=== PATIENT | female | born 1995 | race Caucasian/White ===

== ENCOUNTER 2020-05-23 12:38 | Emergency (ER) | payer OTHER, MEDICAID, SELFPAY ==
[2020-05-23 13:08] VITALS: BP 132/88; PULSE 111; RESP 20; TEMP 36.4; O2SAT 95; BMI 37.0
--- NOTE | 2020-05-23 13:34 | ED.PSYCH ---
HPI - Psych General Chief Complaint: Psychiatric Symptoms Stated Complaint: Crisis Time Seen by Provider: 05/23/20 13:08 Source: patient Mode of arrival: ambulatory Limitations: no limitations History of Present Illness HPI Narrative: 24-year-old female here with a past medical history borderline personality disorder, self injury, depression with feeling depressed for the last few days. Feeling suicidal like she wants to overdose on her home medications. No HI, hallucinations. No substance use currently. No physical complaints. MD complaint: suicidal ideation and feels depressed Onset (ago): day(s) Duration: constant History of same: Yes Relieving factors: none Exacerbating factors: none Associated psychiatric symptoms: none Associated symptoms: denies other symptoms Treatments prior to arrival: none Related Data Home Medications Medication Instructions Recorded Confirmed clonidine HCl 0.2 mg PO BEDTIME 05/23/20 05/23/20 desogestrel-ethinyl estradiol tab 05/23/20 [Apri] duloxetine [Cymbalta] 20 mg PO BID 05/23/20 05/23/20 fluoxetine [Prozac] 40 mg PO DAILY 05/23/20 05/23/20 hydroxyzine HCl 25 mg PO QID 05/23/20 05/23/20 quetiapine [Seroquel] 25 mg PO TID 05/23/20 05/23/20 topiramate [Topamax] 100 mg PO BEDTIME 05/23/20 05/23/20 Allergies Allergy/AdvReac Type Severity Reaction Status Date / Time No Known Allergies Allergy Verified 05/23/20 13:16 Review of Systems Review of Systems: Yes all other systems are reviewed and are negative Constitutional: Constitutional: Reports no additional constitutional complaints, Denies body ache(s), Denies chills, Denies fever(s), Denies headache(s) and Denies weakness Eyes: Eyes: Reports no additional eye complaints and Denies change in vision ENT: Reports system reviewed and no additional complaints, except as documented, Denies dizziness, Denies headache(s), Denies nasal congestion, Denies nasal discharge and Denies neck pain Cardiovascular: Cardiovascular: Reports no additional cardiovascular complaints, Denies chest pain, Denies leg edema and Denies dyspnea Respiratory: Respiratory: Reports no additional respiratory complaints, Denies cough and Denies dyspnea Gastrointestinal: Gastrointestinal: Reports no additional gastrointestinal complaints, Denies abdominal pain, Denies diarrhea, Denies nausea and Denies vomiting Genitourinary: Genitourinary: Reports no additional female genitourinary complaints and Denies urinary incontinence Musculoskeletal: Musculoskeletal: Reports no additional musculoskeletal complaints, Denies back pain, Denies arthralgias, Denies joint swelling, Denies neck pain, Denies numbness and Denies tingling Integumentary/Breasts: Skin/Breast: Reports system reviewed and no additional complaints, except as docu and Denies rash Neurologic: Reports system reviewed and no additional complaints, except as documented, Denies Abnormal speech present, Denies dizziness, Denies headache(s), Denies numbness, Denies tingling and Denies weakness Psychiatric: Psychiatric: Denies anxiety, Reports depression, Reports hopelessness, Denies visual hallucinations, Denies hallucinations, Denies tactile hallucinations, Denies homicidal ideation and Reports suicidal ideation [facility] Past Medical History Attestation statement: The following information was validated with the patient. Source: obtained from family and nursing notes reviewed Social History Social History Smoking Status: Current every day smoker Use of substances other than those prescribed or required for medical reasons: Yes Substance Use Type: Crack/Cocaine Advance Directives: No Advance Directives Information Provided: Yes Physical Exam Vital Signs: Vital Signs: Vital Signs Temp Pulse Resp BP Pulse Ox 05/23/20 16:24 98.5 F 76 20 121/80 97 05/23/20 13:08 97.6 F 111 H 20 132/88 95 Body Mass Index 37.0 Const: General: cooperative, healthy appearing, comfortable and no acute distress Orientation/consciousness: patient oriented x3 Limitations: no limitations HENMT: Head: Yes normal to inspection Ears: hearing grossly normal bilaterally General nose exam: Normal external nose present Face and sinus: Yes normal facial exam Mouth: Normal oral and palatal mucosa present Throat: Yes posterior oropharynx normal Eyes: General: appearance normal, both eyes and all related structures Pupils: Equal, round and reactive pupils present Neck: Neck: Yes normal visual inspection Chest: Chest palpation & inspection: normal inspection of the chest Resp: Effort & Inspection: normal respiratory effort Auscultation: clear to auscultation bilaterally Cardio: Rate: regular rate Rhythm: regular rhythm Peripheral pulses: Peripheral pulses 2+ throughout GI: Inspection: Yes normal to inspection Palpation (GI): Soft to palpation and nontender Auscultation: normal bowel sounds Back/Spine/Pelvis: Thoracic/Lumbar Spine: thoracic and lumbar spine normal to inspection Skin: General skin exam: no rashes or lesions noted Neuro: General: patient oriented x3, no focal motor deficits and normal sensation to monofilament Cranial nerves: Yes Equal, round and reactive pupils present Cognition (Neuro): normal cognition Speech: No Abnormal speech present Gait exam (Neuro): Normal gait present Motor exam (neuro): 5/5 motor strength present throughout Extrem: General: Yes normal to inspection Course Course Course Narrative: 24-year-old female here with SI, plan to OD on home pills and depression. No physical complaints. No concern for acute ingestion or trauma. Will check labs, drug screen, N evaluation. 1430- Labs reviewed. Mildly elevated LFTs. No old labs to compare to. Patient tells me she normally goes to [facility]. Will obtain to get records to compare. Tylenol level 0. Denies alcohol use. Is concerned over recent unprotected sexual activity with a partner. Add on hepatitis panel. At this time patient is medically cleared to be seen by [facility]. 1545- I did get labs from 05/17/2020 which show AST of 42 and ALT of 56. Tylenol level than 0. I talked to the patient. She denies abdominal pain or vomiting. She denies IV drug use or history of hepatitis. Hepatitis panel pending. Denies alcohol use. Denies Tylenol use. May be secondary to underlying hepatitis. low concern for tylenol toxicity with negative levels. Low concern for obstructive pathology with negative total/indirect bili. Will continue with plan of care. 1700-Sign out to [place]mar COMPENSATION ADMINISTRATOR pending above. MDM - Psych Restraints Face to Face Assessment: Face to Face Assessment: Current Situation: After assessment of the patient, a review of the pertinent medical record and a discussion with nursing staff, I feel the patient requires a restrain intervention. Reaction To: [] Medical Condition: [] Behavioral State: [] Continued Need: [] Medical Records Attestation: I reviewed the patient's medical records. Lab Data Attestation: I reviewed the patient's lab results. Result diagrams: 05/23/20 13:25 05/23/20 13:25 Labs: Lab Results 05/23/20 05/23/2005/23/20 Range/Units 13:25 13:25 13:25 WBC 7.8 (4.8-10.8) X10*3/uL RBC 4.99 (4.20-5.50) X10*6/uL Hgb 14.3 (12.0-16.0) g/dl Hct 43.4 (37-47) % MCV 87.0 (80-98) fL MCH 28.7 (27.0-33.0) pg MCHC 32.9 (31.0-35.0) g/dl RDW 13.0 (11.0-16.0) % Plt Count 239 (160-400) X10*3/uL MPV 9.5 (9.4-12.3) fL Immature Gran % (Auto) Cancelled Neut % (Auto) Cancelled Lymph % (Auto) Cancelled [facility] % (Auto) Cancelled Eos % (Auto) Cancelled Baso % (Auto) Cancelled Lymph # (Auto) Cancelled [facility] # (Auto) Cancelled Eos # (Auto) Cancelled Baso # (Auto) Cancelled Abs Immat Gran (auto) Cancelled Absolute Neuts (auto) Cancelled Absolute Nucleated RBC 0.000 (0.0-0.012) X10*3/uL Nucleated RBC % (auto) 0.0 (0.0-0.2) /100WBC Neutrophils % (Manual) 29 L (45-73) % Band Neutrophils % 0 L (3-5) % Lymphocytes % (Manual) 51 H (20-40) % Atypical Lymphs % (Man) 5 (0-6) % Monocytes % (Manual) 9 (2-11) % Eosinophils % (Manual) 4 (0-4) % Basophils % (Manual) 2 H (0-1) % Abs Neuts (Manual) 2.3 (2.2-7.9) X10*3/uL Lymphocytes # (Manual) 4.0 (0.6-4.8) X10*3/uL Atyp Lymphs # (Manual) 0.4 x10*3/uL Monocytes # (Manual) 0.7 (0.0-1.2) X10*3/uL Eosinophils # (Manual) 0.3 (0.0-0.8) X10*3/UL Basophils # (Manual) 0.2 (0.0-0.3) X10*3/uL Platelet Estimate NORMAL (NORMAL) Plt Morphology Comment NORMAL RBC Morphology NOTED Acanthocytes (Spur) 1+ Smear Tech's Comments MANUAL DIFF Sodium 140 (135-145) mmol/L Potassium 3.7 (3.3-5.1) mmol/l Chloride 111 H (96-108) mmol/L Carbon Dioxide 20 L (22-29) mmol/L Anion Gap 13 (12-20) BUN 8 L (9-16) mg/dL Creatinine 0.71 (0.5-1.4) mg/dL Estim Creat Clear Calc 119.1 Estimated GFR > 60 Random Glucose 97 (60-115) mg/dL Calcium 8.1 L (8.4-10.2) mg/dL Total Bilirubin 0.4 (0.0-1.0) mg/dL AST 165 H (5-31) U/L ALT 157 H (0-31) U/L Alkaline Phosphatase 96 (39-117) U/L Total Protein 6.8 (6.5-8.0) g/dL Albumin 3.9 (3.5-5.0) g/dL Urine Test (NEGATIVE) Salicylates < 5.0 L (15-30) mg/dL Urine Opiates Screen Acetaminophen < 1 (<30) mcg/mL Ur Barbiturates Screen Ur Phencyclidine Scrn Ur Amphetamines Screen (Not Detect) U Benzodiazepines Scrn Urine Cocaine Screen (Not Detect) U Marijuana (THC) Screen Ethyl Alcohol < 10 mg/dL 05/23/20 05/23/20 Range/Units 13:57 13:57 WBC (4.8-10.8) X10*3/uL RBC (4.20-5.50) X10*6/uL Hgb (12.0-16.0) g/dl Hct (37-47) % MCV (80-98) fL MCH (27.0-33.0) pg MCHC (31.0-35.0) g/dl RDW (11.0-16.0) % Plt Count (160-400) X10*3/uL MPV (9.4-12.3) fL Immature Gran % (Auto) Neut % (Auto) Lymph % (Auto) [facility] % (Auto) Eos % (Auto) Baso % (Auto) Lymph # (Auto) [facility] # (Auto) Eos # (Auto) Baso # (Auto) Abs Immat Gran (auto) Absolute Neuts (auto) Absolute Nucleated RBC (0.0-0.012) X10*3/uL Nucleated RBC % (auto) (0.0-0.2) /100WBC Neutrophils % (Manual) (45-73) % Band Neutrophils % (3-5) % Lymphocytes % (Manual) (20-40) % Atypical Lymphs % (Man) (0-6) % Monocytes % (Manual) (2-11) % Eosinophils % (Manual) (0-4) % Basophils % (Manual) (0-1) % Abs Neuts (Manual) (2.2-7.9) X10*3/uL Lymphocytes # (Manual) (0.6-4.8) X10*3/uL Atyp Lymphs # (Manual) x10*3/uL Monocytes # (Manual) (0.0-1.2) X10*3/uL Eosinophils # (Manual) (0.0-0.8) X10*3/UL Basophils # (Manual) (0.0-0.3) X10*3/uL Platelet Estimate (NORMAL) Plt Morphology Comment RBC Morphology Acanthocytes (Spur) Smear Tech's Comments Sodium (135-145) mmol/L Potassium (3.3-5.1) mmol/l Chloride (96-108) mmol/L Carbon Dioxide (22-29) mmol/L Anion Gap (12-20) BUN (9-16) mg/dL Creatinine (0.5-1.4) mg/dL Estim Creat Clear Calc Estimated GFR Random Glucose (60-115) mg/dL Calcium (8.4-10.2) mg/dL Total Bilirubin (0.0-1.0) mg/dL AST (5-31) U/L ALT (0-31) U/L Alkaline Phosphatase (39-117) U/L Total Protein (6.5-8.0) g/dL Albumin (3.5-5.0) g/dL Urine Test NEGATIVE (NEGATIVE) Salicylates (15-30) mg/dL Urine Opiates Screen TNP Acetaminophen (<30) mcg/mL Ur Barbiturates Screen TNP Ur Phencyclidine Scrn TNP Ur Amphetamines Screen Not Detected (Not Detect) U Benzodiazepines Scrn TNP Urine Cocaine Screen Not Detected (Not Detect) U Marijuana (THC) Screen TNP Ethyl Alcohol mg/dL Discharge Plan Discharge Clinical Impression: Suicidal ideation, Depression, Elevated LFTs Prescriptions: No Action hydroxyzine HCl 25 mg PO QID RF: 0 quetiapine [Seroquel] 25 mg Tablet 25 mg PO TID RF: 0 fluoxetine [Prozac] 40 mg Capsule 40 mg PO DAILY RF: 0 desogestrel-ethinyl estradiol [Apri] 0.15-0.03 mg Tablet RF: 0 clonidine HCl 0.2 mg Tablet 0.2 mg PO BEDTIME RF: 0 topiramate [Topamax] 100 mg Tablet 100 mg PO BEDTIME RF: 0 duloxetine [Cymbalta] 20 mg Capsule,Delayed Release(Dr/Ec) 20 mg PO BID RF: 0 Sign Out Sign Out Data: Sign Out Comment: Pending [facility] Last updated by Ana Jacobs COMPENSATION ADMINISTRATOR at 05/23/20 17:02
[2020-05-23 13:42] LABS: Hematocrit 43.4 % (37-47); Hemoglobin 14.3 g/dl (12.0-16.0); Mean Corpuscular HGB Conc 32.9 g/dl (31.0-35.0); Mean Corpuscular Hemoglobin 28.7 pg (27.0-33.0); Mean Platelet Volume 9.5 fL (9.4-12.3); Platelet Count 239 X10*3/uL (160-400); Red Blood Count 4.99 X10*6/uL (4.20-5.50); White Blood Count 7.8 X10*3/uL (4.8-10.8)
[2020-05-23 14:12] LABS: Ethanol < 10 mg/dL
[2020-05-23 14:13] LABS: UPreg QC Valid YES; Urine Pregnancy NEGATIVE (NEGATIVE)
[2020-05-23 14:16] LABS: SLIDE REVIEW MANUAL DIFF
[2020-05-23 14:21] LABS: Atypical Lymph Absolute Manual 0.4 x10*3/uL; Atypical Lymphs Percent Manual 5 % (0-6); Basophils Abs Manual 0.2 X10*3/uL (0.0-0.3); Basophils Percent Manual 2 % (0-1); Eosinophils Absolute Manual 0.3 X10*3/UL (0.0-0.8); Eosinophils Percent Manual 4 % (0-4); Lymphocytes Percent Manual 51 % (20-40); Monocytes Absolute Manual 0.7 X10*3/uL (0.0-1.2); Monocytes Percent Manual 9 % (2-11); Neutrophils Percent Manual 29 % (45-73)
[2020-05-23 14:22] LABS: Acanthocytes 1+; Platelet Estimate NORMAL (NORMAL); Platelet Morphology Comment NORMAL; RBC Morphology NOTED
[2020-05-23 14:25] LABS: Acetaminophen LAB < 1 mcg/mL (<30); Alanine Aminotransferase 157 U/L (0-31); Albumin Level 3.9 g/dL (3.5-5.0); Alkaline Phosphatase 96 U/L (39-117); Aspartate Amino Transferase 165 U/L (5-31); Bilirubin Total 0.4 mg/dL (0.0-1.0); Blood Urea Nitrogen 8 mg/dL (9-16); Calcium 8.1 mg/dL (8.4-10.2); Creatinine Clr Calc Pharmacy 119.1; Estimated Glomerular Filt Rate > 60; Glucose Random 97 mg/dL (60-115); Potassium 3.7 mmol/l (3.3-5.1); Salicylate < 5.0 mg/dL (15-30); Sodium 140 mmol/L (135-145); Total Protein 6.8 g/dL (6.5-8.0)
[2020-05-23 14:30] LABS: Band Neutrophils Percent 0 % (3-5); Neutrophils Absolute Manual 2.3 X10*3/uL (2.2-7.9)
[2020-05-23] MEDS: LORazepam 1 MG TABLET PO (14:49)
[2020-05-23 14:55] LABS: Amphetamine Screen Urine Not Detected (Not Detect); Cocaine Screen Urine Not Detected (Not Detect)
--- NOTE | 2020-05-23 15:38 | PC.NURSE ---
Medical records received from [facility], reviewed w/ provider.
[2020-05-23 16:24] VITALS: BP 121/80; PULSE 76; RESP 20; TEMP 36.9; O2SAT 97
[2020-05-23 17:13] LABS: UPreg QC Valid YES; Urine Pregnancy NEGATIVE (NEGATIVE)
[2020-05-23 17:27] LABS: Amphetamine Screen Urine Not Detected (Not Detect); Barbiturates, Urine Not Detected (Not Detect); Benzodiazepines Screen Urine Not Detected (Not Detect); Cannabinoid Screen Urine POSITIVE (Not Detect); Cocaine Screen Urine Not Detected (Not Detect); Opiate Screen Urine Not Detected (Not Detect); Phencyclidine Screen Urine Not Detected (Not Detect)
[2020-05-23 20:20] LABS: Lipase 6 U/L (8-78)
[2020-05-23 20:26] LABS: Anion Gap 15 (12-20); Carbon Dioxide 19 mmol/L (22-29); Chloride 110 mmol/L (96-108)
[2020-05-23 20:47] VITALS: BP 123/79; PULSE 86
[2020-05-23] MEDS: QUEtiapine Fumarate 25 MG TABLET PO (20:47)
[2020-05-23] MEDS: cloNIDine HCL 0.2 MG TABLET PO (20:47)
[2020-05-23] MEDS: hydrOXYzine HCL 25 MG TABLET PO (20:47)
[2020-05-23] MEDS: Topiramate 100 MG TABLET PO (20:47)
[2020-05-23 20:51] VITALS: BP 123/79; PULSE 86; RESP 20; O2SAT 97
[2020-05-23] MEDS: DULoxetine HCl 20 MG CAPSULE.DR PO (21:20)
[2020-05-23] MEDS: metroNIDAZOLE 500 MG TABLET PO (22:36)
[2020-05-24 04:40] LABS: HBS Num1 0.55 mIU/mL (0-7.99); HBc Num1 0.13 S/CO (0.00-0.79); Hepatitis B Core Antibody Nonreactive (Nonreactive); ~HepC Num1 0.15 S/CO (0.00-0.79); ~Hepatitis B Surface Antibody NONREACTIVE (Nonreactive); ~Hepatitis C Antibody Nonreactive (Nonreactive)
[2020-05-24 04:44] LABS: HBsAGNum1 0.19 S/CO (0.00-0.99); Hepatitis B Surface Antigen Negative (Negative)
--- NOTE | 2020-05-24 07:09 | PC.NURSE ---
Report received from NONA Torres. Pt5 resting, resp unlabored.
[2020-05-24 08:41] VITALS: BP 117/72; PULSE 81; TEMP 36.3
[2020-05-24] MEDS: hydrOXYzine HCL 25 MG TABLET PO ×4 (09:09→20:03)
[2020-05-24] MEDS: FLUoxetine HCl 20 MG CAPSULE 40 MG PO (09:09)
[2020-05-24 09:43] LABS: Alanine Aminotransferase 139 U/L (0-31); Albumin Level 3.6 g/dL (3.5-5.0); Alkaline Phosphatase 87 U/L (39-117); Aspartate Amino Transferase 139 U/L (5-31); Bilirubin Direct 0.2 mg/dL (0.0-0.5); Bilirubin Total 0.6 mg/dL (0.0-1.0); Total Protein 6.3 g/dL (6.5-8.0)
[2020-05-24] MEDS: DULoxetine HCl 20 MG CAPSULE.DR PO ×2 (09:57→20:15)
[2020-05-24] MEDS: metroNIDAZOLE 500 MG TABLET PO ×2 (10:14→20:04)
[2020-05-24 16:25] VITALS: BP 115/72; PULSE 82; RESP 20; TEMP 36.9; O2SAT 97
[2020-05-24 16:56] LABS: SARS COV2 PCR INHOUSE NEGATIVE (Negative)
--- NOTE | 2020-05-24 17:30 | PC.NURSE ---
report given to pattie chaves at [facility].
[2020-05-24 20:04] VITALS: BP 115/71; PULSE 85
[2020-05-24] MEDS: cloNIDine HCL 0.2 MG TABLET PO (20:04)
[2020-05-24] MEDS: Topiramate 100 MG TABLET PO (20:15)
[2020-05-25 07:28] LABS: Hepatitis A Antibody IgM 0.24 Index (0-0.79); ~Hepatitis A Antibody IgM Nonreactive (Nonreactive)
== END 2020-05-24 21:13 ==
PROVIDERS: Nurse Practitioner Family; Nurse Practitioner Primary Care; Emergency Provider Emergency Medicine; PCP Family Medicine
DX: F33.1 Major depressive disorder, recurrent, moderate (principal); R45.851 Suicidal ideations; R79.89 Other specified abnormal findings of blood chemistry; Z79.899 Other long term (current) drug therapy; Z20.828 Contact with and (suspected) exposure to other viral communicable diseases
CPT/HCPCS: 36415; 80053; 80076; 80307; 80320; 81025; 83690; 85007; 85025; 85027; 86704; 86706; 86709; 86803; 87340; 99285; G0480; U0003

== ENCOUNTER 2021-12-06 15:53 | Inpatient (IN) | payer OTHER, SELFPAY ==
--- NOTE | 2021-12-06 | ECG_ITS ---
Test Reason : MED CLEARANCE Blood Pressure : / mmHG Vent. Rate : 081 BPM Atrial Rate : 081 BPM P-R Int : 132 ms QRS Dur : 076 ms QT Int : 408 ms P-R-T Axes : 042 068 042 degrees QTc Int : 473 ms Normal sinus rhythm Normal ECG No previous ECGs available Referred By: Jerod Little Electronically Signed By:KEITH EMERSON
--- NOTE | ~2021-12-06 | CT_ITS ---
EXAMINATION: CT FACIAL BONES WITHOUT CONTRAST CLINICAL INFORMATION: Facial trauma. Crepitus. COMPARISON: None TECHNIQUE: Axial images through the facial bones without contrast. Sagittal and coronal reconstructions on the technologist workstation were performed. This CT examination was performed using dose optimization techniques as appropriate, variously including the following: *Automated exposure control *Adjustment of mA and/or kV according to patient size (this includes techniques or standardized protocols for targeted exams where dose is matched to indication/reason for exam; i.e. extremities or head) *Use of iterative reconstruction technique DLP: 229 mGy-cm FINDINGS: No fracture is seen. The nasal septum is midline. The paranasal sinuses are clear. The temporomandibular joints are normal. The mastoid air cells and middle ears are clear. The orbits are normal. There is shotty cervical lymphadenopathy. No abnormal air collection is seen. CT/CT facial bones wo con IMPRESSION: No fracture seen.
[2021-12-06 15:56] VITALS: BP 125/85; PULSE 87; RESP 18; TEMP 36.7; O2SAT 100; BMI 54.6
--- NOTE | 2021-12-06 16:01 | PC.NURSE ---
Mom and patient able to contract for safety. pod staff made aware of access to lethal means being in vehicle on site.
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
[2021-12-06 17:21] LABS: Amphetamine Screen Urine Not Detected (Not Detect); Barbiturates, Urine Not Detected (Not Detect); Benzodiazepines Screen Urine Not Detected (Not Detect); Cannabinoid Screen Urine POSITIVE (Not Detect); Cocaine Screen Urine Not Detected (Not Detect); Fentanyl, urine Not Detected (Not Detect); Opiate Screen Urine Not Detected (Not Detect); Phencyclidine Screen Urine Not Detected (Not Detect)
[2021-12-06 17:26] LABS: COVID-19 Test Negative (Negative); IDNOW Serial# 16C4AD1C
[2021-12-06 17:26] LABS: Appearance Urine CLEAR; Color Urine YELLOW; Glucose Urine UA NEG (NEG); Leukocyte Esterase Urine NEG (NEG); Nitrite Urine NEG (NEG); PH 6.5 (5.0-8.0); Specific Gravity - Urine 1.015 (1.005-1.025); UACC Culture Trigger NO; Urine Blood TRACE (NEG); Urine Ketones 5 MG/DL (NEG); Urine Protein NEG (NEG-TRACE)
[2021-12-06 17:35] LABS: RBC Urine 0 /HPF (0); Squamous Epithelial Cell Urine 1+ /LPF; WBC Urine 0 /HPF (0-4)
--- NOTE | 2021-12-06 20:17 | PHA.MEDREC ---
Pharmacy Consult ? Medication Reconciliation Pharmacy has completed the medication reconciliation.
[2021-12-06 20:56] LABS: Basophils Percent Auto 0.3 % (0-2); Eosinophils Absolute Auto 0.1 X10*3/uL (0.0-0.4); Eosinophils Percent Auto 1.3 % (0-4); Hematocrit 38.5 % (37.0-47.0); Hemoglobin 12.4 g/dl (12.0-16.0); Imm Gran Abs Auto 0.03 X10*3/uL (0.00-0.03); Imm Gran Pct Auto 0.3 % (0.0-0.4); Lymphocytes Absolute Auto 3.5 X10*3/uL (1.2-4.9); Lymphocytes Percent Auto 40.1 % (20-40); MANUAL DIFF FLAG NO; Mean Corpuscular HGB Conc 32.2 g/dl (31.0-35.0); Mean Corpuscular Hemoglobin 26.2 pg (27.0-33.0); Mean Corpuscular Volume 81.4 fL (80.0-98.0); Mean Platelet Volume 9.3 fL (9.4-12.3); Monocytes Absolute Auto 0.7 X10*3/uL (0.1-1.2); Monocytes Percent Auto 8.3 % (2-11); Neutrophils Absolute Auto 4.4 x10*3/uL (2.0-8.3); Neutrophils Percent Auto 49.7 % (45-73); Platelet Count 362 X10*3/uL (160-400); Red Blood Count 4.73 X10*6/uL (4.20-5.50); Red Cell Distribution Width 13.7 % (11.0-16.0); White Blood Count 8.8 X10*3/uL (4.8-10.8)
[2021-12-06 21:14] LABS: Alanine Aminotransferase 29 U/L (0-31); Albumin Level 4.1 g/dL (3.5-5.0); Alkaline Phosphatase 105 U/L (39-117); Anion Gap 13 (12-20); Aspartate Amino Transferase 26 U/L (5-31); Bilirubin Total 0.4 mg/dL (0.0-1.0); Blood Urea Nitrogen 6 mg/dL (9-16); Calcium 9.3 mg/dL (8.4-10.2); Carbon Dioxide 23 mmol/L (22-29); Chloride 109 mmol/L (96-108); Estimated Glomerular Filt Rate > 60; Glucose Random 98 mg/dL (60-115); Magnesium 2.2 mg/dL (1.6-2.6); Potassium 4.4 mmol/L (3.3-5.1); Sodium 141 mmol/L (135-145); Total Protein 7.3 g/dL (6.5-8.0)
[2021-12-06 21:15] LABS: Ethanol < 10 mg/dL
--- NOTE | 2021-12-06 21:34 | MHC.CARE ---
Pt is a voluntary Inpatient bedsearch
[2021-12-06] MEDS: LORazepam 1 MG TABLET PO (22:18)
[2021-12-06 22:58] LABS: Acetaminophen LAB < 1 mcg/mL (<30); Salicylate < 5.0 mg/dL (15-30)
[2021-12-07 00:26] VITALS: BMI 49.1
[2021-12-07 00:27] VITALS: BP 116/60; PULSE 84; TEMP 36.8; O2SAT 94
[2021-12-07] MEDS: traZODone HCL 50 MG TABLET PO ×2 (01:07→21:09)
[2021-12-07] MEDS: Acetaminophen 325 MG TABLET 650 MG PO (01:07)
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
[2021-12-07 06:00] VITALS: BP 119/80; PULSE 86; RESP 18; TEMP 36.8; O2SAT 92
[2021-12-07 10:30] VITALS: BMI 49.2
[2021-12-07] MEDS: LORazepam 1 MG TABLET PO ×2 (11:46→20:43)
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
[2021-12-07 19:21] VITALS: BP 117/71; PULSE 92; O2SAT 94
[2021-12-07] MEDS: cloNIDine HCL 0.1 MG TABLET PO (19:22)
[2021-12-07 21:09] VITALS: BP 128/63; PULSE 86; RESP 16; TEMP 36.8; O2SAT 95
[2021-12-08 10:41] VITALS: BP 123/63; PULSE 84; RESP 20; TEMP 35.9; O2SAT 97
[2021-12-08] MEDS: cloNIDine HCL 0.1 MG TABLET 0.05 MG PO (10:48)
[2021-12-08] MEDS: Acetaminophen 325 MG TABLET 650 MG PO (13:48)
[2021-12-08] MEDS: DULoxetine HCl 30 MG CAPSULE.DR PO (13:48)
[2021-12-08 14:00] VITALS: BP 116/61; PULSE 83; RESP 20; O2SAT 98
[2021-12-08] MEDS: cloNIDine HCL 0.1 MG TABLET PO (15:19)
--- NOTE | 2021-12-08 15:36 | P.PNPSI_ITS ---
Subjective Subjective Date of Service: 12/08/21 Reason For Visit: SI Interim History: pt seen with NATE. calm and cooperative. reports anxiety no better with clonidine, agrees to increase dosing today. acknowledgement of her depression made today, anti-depressant Rx discussed. pt agrees to re-trial of cymbalta, her most recent medication trial, as she believes she did not have an adequate trial of it and she cannot recall the reason it was stopped, unlike other medications she has been on. also c/o yeast infection and asks for diflucan, which is granted. SW engages pt in some conversation about discharge planning. will likely F/U at [facility] in [place]. per staff, pleasant, moderate anx/dep. wishing she were , would hurt herself if she could, but not here. slept eves, med-compliant, appetite good. per collateral from mother, pt has been binging, paranoid, leaving multiple jobs (4 in the last month). Mental Status Exam Mental Status Exam Narrative: adequately dressed and groomed. cooperative. no PMA/PMR. speech nml in rate, amount, loudness, latency. flattened tone. thoughts linear and logical. affect constricted, normo-intense, non-labile. no SI/HI/AVH expressed. Diagnostics Vital Signs (24Hr): Vital Signs - 24 hr 12/07/21 19:21 12/07/21 21:09 12/08/21 10:41 Temperature 98.3 F 96.7 F L Pulse Rate 92 86 84 Respiratory Rate 16 20 Blood Pressure 117/71 128/63 123/63 Pulse Oximetry 94 95 97 BMI result Body Mass Index 49.2 Labs Results: 12/06/21 20:51 12/06/21 20:51 Labs: Laboratory Results - last 48 hr 12/06/21 12/06/21 12/06/21 16:55 16:55 16:56 WBC RBC Hgb Hct MCV MCH MCHC RDW Plt Count MPV Immature Gran % (Auto) Neut % (Auto) Lymph % (Auto) [place] % (Auto) Eos % (Auto) Baso % (Auto) Lymph # (Auto) [place] # (Auto) Eos # (Auto) Baso # (Auto) Abs Immat Gran (auto) Absolute Neuts (auto) Absolute Nucleated RBC Nucleated RBC % (auto) Sodium Potassium Chloride Carbon Dioxide Anion Gap BUN Creatinine Estim Creat Clear Calc Estimated GFR Random Glucose Calcium Magnesium Total Bilirubin AST ALT Alkaline Phosphatase Total Protein Albumin Urine Color YELLOW Urine Appearance CLEAR Urine pH 6.5 Ur Specific [place] 1.015 Urine Protein NEG Urine Glucose (UA) NEG Urine Ketones 5 Urine Blood TRACE Urine Nitrite NEG Ur Leukocyte Esterase NEG Urine RBC 0 Urine WBC 0 Ur Squamous Epith Cells 1+ Urine Bacteria NONE Salicylates Urine Opiates Screen Not Detected Urine Fentanyl Screen Not Detected Acetaminophen Ur Barbiturates Screen Not Detected Ur Phencyclidine Scrn Not Detected Ur Amphetamines Screen Not Detected U Benzodiazepines Scrn Not Detected Urine Cocaine Screen Not Detected U Marijuana (THC) Screen POSITIVE H Ethyl Alcohol COVID-19 ([facility]) Negative COVID-19 Clin Com See Note 12/06/21 12/06/21 12/06/21 20:51 20:51 20:51 WBC 8.8 RBC 4.73 Hgb 12.4 Hct 38.5 MCV 81.4 MCH 26.2 L MCHC 32.2 RDW 13.7 Plt Count 362 MPV 9.3 L Immature Gran % (Auto) 0.3 Neut % (Auto) 49.7 Lymph % (Auto) 40.1 H [place] % (Auto) 8.3 Eos % (Auto) 1.3 Baso % (Auto) 0.3 Lymph # (Auto) 3.5 [place] # (Auto) 0.7 Eos # (Auto) 0.1 Baso # (Auto) 0.0 Abs Immat Gran (auto) 0.03 Absolute Neuts (auto) 4.4 Absolute Nucleated RBC 0.000 Nucleated RBC % (auto) 0.0 Sodium 141 Potassium 4.4 Chloride 109 H Carbon Dioxide 23 Anion Gap 13 BUN 6 L Creatinine 0.73 Estim Creat Clear Calc 144.0 Estimated GFR > 60 Random Glucose 98 Calcium 9.3 D Magnesium 2.2 Total Bilirubin 0.4 AST 26 D ALT 29 Alkaline Phosphatase 105 D Total Protein 7.3 Albumin 4.1 Urine Color Urine Appearance Urine pH Ur Specific [place] Urine Protein Urine Glucose (UA) Urine Ketones Urine Blood Urine Nitrite Ur Leukocyte Esterase Urine RBC Urine WBC Ur Squamous Epith Cells Urine Bacteria Salicylates < 5.0 L Urine Opiates Screen Urine Fentanyl Screen Acetaminophen < 1 Ur Barbiturates Screen Ur Phencyclidine Scrn Ur Amphetamines Screen U Benzodiazepines Scrn Urine Cocaine Screen U Marijuana (THC) Screen Ethyl Alcohol < 10 COVID-19 ([facility]) COVID-19 Clin Com Medications Medications Current Medications Acetaminophen (Acetaminophen 325 Mg Tablet) 650 mg PO Q6H PRN PRN Reason: Headache/Pain Mild Scale (1-3) Last Admin: 12/08/21 13:48 Dose: 650 mg Documented by: Al Hydroxide/Mg Hydroxide (Magnesium Hydrox/Alum Hydrox 30 Ml Oral.Susp) 30 ml PO Q6H PRN PRN Reason: Heartburn/Nausea Clonidine HCl (Clonidine Hcl 0.1 Mg Tablet) 0.1 mg PO BID@0900,1500 [facility]; Protocol Last Admin: 12/08/21 15:19 Dose: 0.1 mg Documented by: Clonidine HCl (Clonidine Hcl 0.2 Mg Tablet) 0.2 mg PO BEDTIME [facility]; Protocol Duloxetine HCl (Duloxetine Hcl 30 Mg Capsule.Dr) 30 mg PO DAILY [facility] Last Admin: 12/08/21 13:48 Dose: 30 mg Documented by: Hydroxyzine HCl (Hydroxyzine Hcl 25 Mg Tablet) 25 mg PO BEDTIME PRN PRN Reason: Anxiety Magnesium Hydroxide (Milk Of Magnesia 30 Ml Oral.Susp) 30 ml PO DAILY PRN PRN Reason: Constipation Nicotine Polacrilex (Nicotine Polacrilex 2 Mg Gum) 2 mg BUCCAL Q2H PRN PRN Reason: Nicotine Cravings Trazodone HCl (Trazodone Hcl 50 Mg Tablet) 50 mg PO BEDTIME [facility] Last Admin: 12/07/21 21:09 Dose: 50 mg Documented by: Trazodone HCl (Trazodone Hcl 50 Mg Tablet) 50 mg PO BEDTIME PRN PRN Reason: Insomnia Allergies Allergies Allergy/AdvReac Type Severity Reaction Status Date / Time No Known Allergies Allergy Verified 05/23/20 13:16 Assessment & Plan Assessment & Plan (1) Chronic post-traumatic stress disorder (PTSD): Status: Acute Code(s): F43.12 - Post-traumatic stress disorder, chronic (2) Major depressive disorder, recurrent, moderate: Status: Acute Code(s): F33.1 - Major depressive disorder, recurrent, moderate (3) Suicidal ideation: Status: Acute Code(s): R45.851 - Suicidal ideations Plan started clonidine 0.05/0.05/0.1 as of 12/07 to address sympathetic hyperactivity Sx. dosing increased to 0.1/0.1/0.2 12/08 due to lack of effectiveness. titrate as indicated and tolerated. re-trial of cymbalta, started at 30 mg daily as of 12/08. c/o yeast infection, given empiric fluconazole 150 mg PO x 1 on 12/08. stabilize, refer for outpt F/U. I spent __35____ minutes with the patient and/or on the patient floor today, greater than?50% of which was spent counseling/coordinating care. Reason for contiued inpatient stay Substantial Risk for: harm to self, inability to function and rapid decompensation
[2021-12-08 16:26] VITALS: BP 116/61; PULSE 83; RESP 18; O2SAT 98
[2021-12-08] MEDS: Fluconazole 150 MG TABLET PO (17:45)
[2021-12-08 21:25] VITALS: BP 106/57; PULSE 65; RESP 18; TEMP 36.6; O2SAT 100
[2021-12-08] MEDS: cloNIDine HCL 0.2 MG TABLET PO (21:27)
[2021-12-08] MEDS: traZODone HCL 50 MG TABLET PO ×2 (21:27→21:30)
[2021-12-09 09:35] VITALS: BP 127/74; PULSE 76; RESP 20; TEMP 36.4; O2SAT 97
[2021-12-09] MEDS: cloNIDine HCL 0.1 MG TABLET PO ×2 (09:42→13:19)
[2021-12-09] MEDS: DULoxetine HCl 30 MG CAPSULE.DR PO (09:42)
--- NOTE | 2021-12-09 12:44 | HO.PSYCHPN ---
Subjective Subjective Date of Service: 12/09/21 Reason For Visit: SI Subjective Notes: Conditional Voluntary Interim History: Pt complains of depression and anxiety and feeling agitated. Reports no benefit from current clonidine and Vistaril dosing. Has been on higher doses in the past and also ativan that was helpful. Discussed increasing clonidine to 0.2mg am and afternoon and adjusting night time dose to 0.1mg and having 0.1mg prn once a day if needed. Sleep better with trazodone (required 100mg). Hopeless. No current SI. Medication Compliance: Yes Side effects from medications: No Attending Groups: Yes Review of Systems Acute medical concerns: No Review of Systems: nil of note. Noted diflucan started Review of Systems Review of Systems nil new. Started diflucan Mental Status Exam Mental Status Exam Narrative: adequately dressed and groomed.? cooperative.? no PMA/PMR.? speech nml in rate, amount, loudness, latency.? flattened tone.? thoughts linear and logical.? affect constricted, normo-intense, non-labile.? no SI/HI/AVH expressed. Insight and judgment fair Diagnostics Vital Signs (24Hr): Vital Signs - 24 hr 12/08/21 14:00 12/08/21 16:26 12/08/21 21:25 Temperature 97.9 F Pulse Rate 83 83 65 Respiratory Rate 20 18 18 Blood Pressure 116/61 116/61 106/57 L Pulse Oximetry 98 98 100 12/09/21 09:35 Temperature 97.6 F Pulse Rate 76 Respiratory Rate 20 Blood Pressure 127/74 Pulse Oximetry 97 BMI result Body Mass Index 49.2 Labs Results: 12/06/21 20:51 12/06/21 20:51 Medications Medications Current Medications Acetaminophen (Acetaminophen 325 Mg Tablet) 650 mg PO Q6H PRN PRN Reason: Headache/Pain Mild Scale (1-3) Last Admin: 12/08/21 13:48 Dose: 650 mg Documented by: Al Hydroxide/Mg Hydroxide (Magnesium Hydrox/Alum Hydrox 30 Ml Oral.Susp) 30 ml PO Q6H PRN PRN Reason: Heartburn/Nausea Clonidine HCl (Clonidine Hcl 0.2 Mg Tablet) 0.2 mg PO BID@0900,1500 [facility]; Protocol Clonidine HCl (Clonidine Hcl 0.1 Mg Tablet) 0.1 mg PO BEDTIME [facility]; Protocol Clonidine HCl (Clonidine Hcl 0.1 Mg Tablet) 0.1 mg PO DAILY PRN; Protocol PRN Reason: anxiety/insomnia not relieved by hydroxyzine Duloxetine HCl (Duloxetine Hcl 30 Mg Capsule.Dr) 30 mg PO DAILY [facility] Last Admin: 12/09/21 09:42 Dose: 30 mg Documented by: Hydroxyzine HCl (Hydroxyzine Hcl 50 Mg Tablet) 50 mg PO Q6H PRN PRN Reason: Anxiety or insomnia Magnesium Hydroxide (Milk Of Magnesia 30 Ml Oral.Susp) 30 ml PO DAILY PRN PRN Reason: Constipation Nicotine Polacrilex (Nicotine Polacrilex 2 Mg Gum) 2 mg BUCCAL Q2H PRN PRN Reason: Nicotine Cravings Trazodone HCl (Trazodone Hcl 50 Mg Tablet) 50 mg PO BEDTIME PRN PRN Reason: Insomnia Last Admin: 12/08/21 21:30 Dose: 50 mg Documented by: Trazodone HCl (Trazodone Hcl 100 Mg Tablet) 100 mg PO BEDTIME [facility] Allergies Allergies Allergy/AdvReac Type Severity Reaction Status Date / Time No Known Allergies Allergy Verified 05/23/20 13:16 Assessment & Plan Assessment & Plan (1) Chronic post-traumatic stress disorder (PTSD): Status: Acute Code(s): F43.12 - Post-traumatic stress disorder, chronic (2) Major depressive disorder, recurrent, moderate: Status: Acute Code(s): F33.1 - Major depressive disorder, recurrent, moderate (3) Suicidal ideation: Status: Acute Code(s): R45.851 - Suicidal ideations Plan started clonidine 0.05/0.05/0.1 as of 12/07 to address sympathetic hyperactivity Sx. dosing increased to 0.1/0.1/0.2 12/08 due to lack of effectiveness. titrate as indicated and tolerated. re-trial of cymbalta, started at 30 mg daily as of 12/08. c/o yeast infection, given empiric fluconazole 150 mg PO x 1 on 12/08. stabilize, refer for outpt F/U. 12/09: Discussed increasing clonidine to 0.2mg am and afternoon and adjusting night time dose to 0.1mg and having 0.1mg prn once a day if needed. Sleep better with trazodone (required 100mg)- will order same scheduled I spent minutes with the patient and/or on the patient floor today, greater than?50% of which was spent counseling/coordinating care. Patient educated on: medication risk/benefits Informed Consent: understands Reason for contiued inpatient stay Substantial Risk for: inability to function
[2021-12-09 13:17] VITALS: BP 117/71; PULSE 89; RESP 20; O2SAT 97
[2021-12-09] MEDS: hydrOXYzine HCL 50 MG TABLET PO (13:19)
[2021-12-09] MEDS: cloNIDine HCL 0.2 MG TABLET PO (15:07)
[2021-12-09 15:08] VITALS: BP 103/57; PULSE 66; RESP 18; O2SAT 97
--- NOTE | 2021-12-09 23:38 | PC.NURSE ---
Patient declined her HS medications. Patient stated that she did not need them tonight. Patient takes Trazodone and Clonidine at HS.
[2021-12-10] MEDS: cloNIDine HCL 0.2 MG TABLET PO (09:52)
[2021-12-10 10:00] VITALS: BP 84/60; PULSE 68
[2021-12-10] MEDS: DULoxetine HCl 30 MG CAPSULE.DR PO (10:04)
[2021-12-10 14:30] VITALS: BP 84/50; PULSE 68
--- NOTE | 2021-12-10 15:15 | HO.PSYCHPN ---
Subjective Subjective Date of Service: 12/10/21 Reason For Visit: SI Interim History: As per nursing declined night meds. Has been sleeping a lot during the daytime. With technical publications writer minimal interaction and reported no concern around medications. No evidence of SI, HI, psychosis. Medication Compliance: Intermittent Side effects from medications: No Attending Groups: No Review of Systems Acute medical concerns: No Review of Systems Review of Systems Nil acute Mental Status Exam Mental Status Exam Narrative: In bed. Minimal interaction. Ongoing depression and anxiety. affect flat. No evidence of SI HI or psychosis. Insight and judgment okay Diagnostics Vital Signs (24Hr): Vital Signs - 24 hr 12/10/21 10:00 12/10/21 14:30 Pulse Rate 68 68 Blood Pressure 84/60 L 84/50 L BMI result Body Mass Index 49.2 Labs Results: 12/06/21 20:51 12/06/21 20:51 Medications Medications Current Medications Acetaminophen (Acetaminophen 325 Mg Tablet) 650 mg PO Q6H PRN PRN Reason: Headache/Pain Mild Scale (1-3) Last Admin: 12/08/21 13:48 Dose: 650 mg Documented by: Al Hydroxide/Mg Hydroxide (Magnesium Hydrox/Alum Hydrox 30 Ml Oral.Susp) 30 ml PO Q6H PRN PRN Reason: Heartburn/Nausea Clonidine HCl (Clonidine Hcl 0.2 Mg Tablet) 0.2 mg PO BID@0900,1500 [facility]; Protocol Last Admin: 12/10/21 09:52 Dose: 0.2 mg Documented by: Clonidine HCl (Clonidine Hcl 0.1 Mg Tablet) 0.1 mg PO BEDTIME [facility]; Protocol Last Admin: 12/09/21 22:19 Dose: Not Given Documented by: Clonidine HCl (Clonidine Hcl 0.1 Mg Tablet) 0.1 mg PO DAILY PRN; Protocol PRN Reason: anxiety/insomnia not relieved by hydroxyzine Duloxetine HCl (Duloxetine Hcl 30 Mg Capsule.Dr) 30 mg PO DAILY [facility] Last Admin: 12/10/21 10:04 Dose: 30 mg Documented by: Hydroxyzine HCl (Hydroxyzine Hcl 50 Mg Tablet) 50 mg PO Q6H PRN PRN Reason: Anxiety or insomnia Last Admin: 12/09/21 13:19 Dose: 50 mg Documented by: Magnesium Hydroxide (Milk Of Magnesia 30 Ml Oral.Susp) 30 ml PO DAILY PRN PRN Reason: Constipation Nicotine Polacrilex (Nicotine Polacrilex 2 Mg Gum) 2 mg BUCCAL Q2H PRN PRN Reason: Nicotine Cravings Trazodone HCl (Trazodone Hcl 50 Mg Tablet) 50 mg PO BEDTIME PRN PRN Reason: Insomnia Last Admin: 12/08/21 21:30 Dose: 50 mg Documented by: Trazodone HCl (Trazodone Hcl 100 Mg Tablet) 100 mg PO BEDTIME [facility] Last Admin: 12/09/21 22:19 Dose: Not Given Documented by: Allergies Allergies Allergy/AdvReac Type Severity Reaction Status Date / Time No Known Allergies Allergy Verified 05/23/20 13:16 Assessment & Plan Assessment & Plan (1) Chronic post-traumatic stress disorder (PTSD): Status: Acute Code(s): F43.12 - Post-traumatic stress disorder, chronic (2) Major depressive disorder, recurrent, moderate: Status: Acute Code(s): F33.1 - Major depressive disorder, recurrent, moderate (3) Suicidal ideation: Status: Acute Code(s): R45.851 - Suicidal ideations Plan started clonidine 0.05/0.05/0.1 as of 12/07 to address sympathetic hyperactivity Sx. dosing increased to 0.1/0.1/0.2 12/08 due to lack of effectiveness. titrate as indicated and tolerated. re-trial of cymbalta, started at 30 mg daily as of 12/08. c/o yeast infection, given empiric fluconazole 150 mg PO x 1 on 12/08. stabilize, refer for outpt F/U. 12/09: Discussed increasing clonidine to 0.2mg am and afternoon and adjusting night time dose to 0.1mg and having 0.1mg prn once a day if needed. Sleep better with trazodone (required 100mg)- will order same scheduled I spent minutes with the patient and/or on the patient floor today, greater than?50% of which was spent counseling/coordinating care. Reason for contiued inpatient stay Substantial Risk for: inability to function
[2021-12-10 20:26] VITALS: BP 109/62; PULSE 86; RESP 18; TEMP 36.4; O2SAT 97
[2021-12-10] MEDS: traZODone HCL 100 MG TABLET PO (20:32)
[2021-12-10] MEDS: cloNIDine HCL 0.1 MG TABLET PO (20:32)
[2021-12-11] MEDS: DULoxetine HCl 30 MG CAPSULE.DR PO (09:11)
[2021-12-11] MEDS: cloNIDine HCL 0.2 MG TABLET PO (09:11)
[2021-12-11 09:12] VITALS: BP 144/65; PULSE 95; RESP 17; TEMP 36.4; O2SAT 97
--- NOTE | 2021-12-11 15:03 | P.PNPSI_ITS ---
Subjective Subjective Date of Service: 12/11/21 Reason For Visit: SI Interim History: pt calm and cooperative, found sleeping in bed late morning. would like to discharge soon. feels clonidine has not been particularly helpful, it just seems to be making her sleepy (she was placed on larger doses during the day and smaller dose at bedtime over the weekend). she agrees to return the dosing to larger dose at bedtime and smaller doses during the day as of today. denies SI/SIBI. no other complaints or requests. review that it may take some time before any gains from the [facility] are realized. per staff, isolative. refused clonidine at 1500 yesterday. guarded. keeping to self. anx/dep. showered. sleeping well. Mental Status Exam Mental Status Exam Narrative: adequately dressed and groomed. cooperative. no PMA/PMR. speech nml in rate, amount, loudness, latency. flattened tone. thoughts linear and logical. affect constricted, normo-intense, non-labile. denies SI/SIBI. no HI/AVH expressed. Diagnostics Vital Signs (24Hr): Vital Signs - 24 hr 12/10/21 20:26 12/11/21 09:12 Temperature 97.6 F 97.6 F Pulse Rate 86 95 Respiratory Rate 18 17 Blood Pressure 109/62 144/65 H Pulse Oximetry 97 97 BMI result Body Mass Index 49.2 Labs Results: 12/06/21 20:51 12/06/21 20:51 Medications Medications Current Medications Acetaminophen (Acetaminophen 325 Mg Tablet) 650 mg PO Q6H PRN PRN Reason: Headache/Pain Mild Scale (1-3) Last Admin: 12/08/21 13:48 Dose: 650 mg Documented by: Al Hydroxide/Mg Hydroxide (Magnesium Hydrox/Alum Hydrox 30 Ml Oral.Susp) 30 ml PO Q6H PRN PRN Reason: Heartburn/Nausea Clonidine HCl (Clonidine Hcl 0.1 Mg Tablet) 0.1 mg PO DAILY PRN; Protocol PRN Reason: anxiety/insomnia not relieved by hydroxyzine Clonidine HCl (Clonidine Hcl 0.1 Mg Tablet) 0.1 mg PO BID@0900,1500 GLORIA; Protocol Clonidine HCl (Clonidine Hcl 0.2 Mg Tablet) 0.2 mg PO BEDTIME GLORIA; Protocol Duloxetine HCl (Duloxetine Hcl 30 Mg Capsule.Dr) 30 mg PO DAILY GLORIA Last Admin: 12/11/21 09:11 Dose: 30 mg Documented by: Hydroxyzine HCl (Hydroxyzine Hcl 50 Mg Tablet) 50 mg PO Q6H PRN PRN Reason: Anxiety or insomnia Last Admin: 12/09/21 13:19 Dose: 50 mg Documented by: Magnesium Hydroxide (Milk Of Magnesia 30 Ml Oral.Susp) 30 ml PO DAILY PRN PRN Reason: Constipation Nicotine Polacrilex (Nicotine Polacrilex 2 Mg Gum) 2 mg BUCCAL Q2H PRN PRN Reason: Nicotine Cravings Trazodone HCl (Trazodone Hcl 50 Mg Tablet) 50 mg PO BEDTIME PRN PRN Reason: Insomnia Last Admin: 12/08/21 21:30 Dose: 50 mg Documented by: Trazodone HCl (Trazodone Hcl 100 Mg Tablet) 100 mg PO BEDTIME [facility] Last Admin: 12/10/21 20:32 Dose: 100 mg Documented by: Allergies Allergies Allergy/AdvReac Type Severity Reaction Status Date / Time No Known Allergies Allergy Verified 05/23/20 13:16 Assessment & Plan Assessment & Plan (1) Chronic post-traumatic stress disorder (PTSD): Status: Acute Code(s): F43.12 - Post-traumatic stress disorder, chronic (2) Major depressive disorder, recurrent, moderate: Status: Acute Code(s): F33.1 - Major depressive disorder, recurrent, moderate (3) Suicidal ideation: Status: Acute Code(s): R45.851 - Suicidal ideations Plan started clonidine 0.05/0.05/0.1 as of 12/07 to address sympathetic hyperactivity Sx. dosing increased to 0.1/0.1/0.2 12/08 due to lack of effectiveness. titrate as indicated and tolerated. re-trial of cymbalta, started at 30 mg daily as of 12/08. c/o yeast infection, given empiric fluconazole 150 mg PO x 1 on 12/08. stabilize, refer for outpt F/U. 12/09: Discussed increasing clonidine to 0.2mg am and afternoon and adjusting night time dose to 0.1mg and having 0.1mg prn once a day if needed. Sleep better with trazodone (required 100mg)- will order same scheduled. 12/11: return clonidine dosing to 0.1/0.1/0.2 due to daytime sedation. continue current regimen otherwise. discharge planning. I spent ___20___ minutes with the patient and/or on the patient floor today, greater than?50% of which was spent counseling/coordinating care. Reason for contiued inpatient stay Substantial Risk for: inability to function and rapid decompensation
[2021-12-11 20:58] VITALS: BP 99/52; PULSE 70; RESP 18; TEMP 36.6; O2SAT 95
[2021-12-11] MEDS: traZODone HCL 100 MG TABLET PO (21:05)
[2021-12-11] MEDS: hydrOXYzine HCL 50 MG TABLET PO (21:57)
[2021-12-11] MEDS: traZODone HCL 50 MG TABLET PO (21:57)
[2021-12-12 08:30] VITALS: BP 98/57; PULSE 71; RESP 18; TEMP 36.3; O2SAT 97
[2021-12-12] MEDS: DULoxetine HCl 30 MG CAPSULE.DR PO (08:59)
[2021-12-12] MEDS: cloNIDine HCL 0.1 MG TABLET PO ×3 (08:59→22:10)
--- NOTE | 2021-12-12 15:25 | PC.NURSE ---
Patient 3pm Clonidine held due to low blood pressure 106/48, HR 57. Dr. Thomas notified.
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
[2021-12-12 17:09] VITALS: BP 112/67; PULSE 73; RESP 20; O2SAT 97
[2021-12-12 18:00] VITALS: BP 108/64; PULSE 65; RESP 18; TEMP 26; O2SAT 100
[2021-12-12] MEDS: traZODone HCL 100 MG TABLET PO (22:10)
[2021-12-12] MEDS: Topiramate 25 MG TABLET PO (22:10)
[2021-12-13 06:00] VITALS: BP 92/62; PULSE 97; RESP 20; TEMP 36.4; O2SAT 97
[2021-12-13] MEDS: DULoxetine HCl 30 MG CAPSULE.DR PO (08:50)
[2021-12-13] MEDS: cloNIDine HCL 0.1 MG TABLET 0.05 MG PO (08:51)
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
== END 2021-12-13 12:59 | disposition home or self-care (01) | DRG 751 ==
LOC: HO.ED 21:35 → HO.PADLT16 23:42
PROVIDERS: Physician Assistant; Admitting Provider Psychiatry & Neurology Psychiatry; Emergency Provider Internal Medicine; PCP Family Medicine; Visit Provider Psychiatry & Neurology Psychiatry
DX: F33.1 Major depressive disorder, recurrent, moderate (principal); R45.851 Suicidal ideations; F43.12 Post-traumatic stress disorder, chronic; F17.210 Nicotine dependence, cigarettes, uncomplicated; Z20.822 Contact with and (suspected) exposure to COVID-19; Z71.6 Tobacco abuse counseling; Z79.899 Other long term (current) drug therapy
CPT/HCPCS: 70486; 80053; 80143; 80179; 80307; 81001; 82077; 83735; 85025; 87635; 93005; 99285

== ENCOUNTER 2022-07-19 12:45 | Inpatient (IN) | payer OTHER, SELFPAY ==
--- NOTE | 2022-07-19 | ECG_ITS ---
Test Reason : med clearance Blood Pressure : / mmHG Vent. Rate : 064 BPM Atrial Rate : 064 BPM P-R Int : 136 ms QRS Dur : 072 ms QT Int : 422 ms P-R-T Axes : 015 058 039 degrees QTc Int : 435 ms Normal sinus rhythm Normal ECG When compared with ECG of 06-DEC-2021 22:42, No significant change was found Referred By: Anitha Barry Electronically Signed By:ARNAUD BLACKMON MD
--- NOTE | ~2022-07-19 | CT_ITS ---
EXAMINATION: CT HEAD WITHOUT CONTRAST CLINICAL INFORMATION: SIBS head banging. COMPARISON: CT scan of the facial bones 12/12/2021. TECHNIQUE: Multidetector CT imaging of the head was obtained without the use of intravenous contrast. Coronal and sagittal reformatted images were generated at the technologist workstation. This CT examination was performed using dose optimization techniques as appropriate, variously including the following: *Automated exposure control *Adjustment of mA and/or kV according to patient size (this includes techniques or standardized protocols for targeted exams where dose is matched to indication/reason for exam; i.e. extremities or head) *Use of iterative reconstruction technique DLP: 648 mGy-cm. FINDINGS: There is no evidence of acute intracranial hemorrhage or territorial infarction. No abnormal mass-effect or midline shift is seen. Kim to white matter differentiation is well preserved. No extra-axial fluid collections are identified. The ventricles and sulci are normal in size. There is no abnormal attenuation within the brain parenchyma. There is soft tissue swelling with increased subcutaneous fat attenuation in the subcutaneous scalp in the midline above the orbit. There are no underlying osseous abnormalities. The mastoid air cells and visualized paranasal sinuses are well aerated.. CT/CT head/brain wo IV con IMPRESSION: 1. There are no acute bleeds or territorial infarcts. There are no acute osseous abnormalities. 2. There is soft tissue swelling in the scalp in the midline in the supraorbital region, consistent with a contusion. 3. No intracranial masses or collections are demonstrated.
[2022-07-19 12:48] VITALS: BP 136/87; PULSE 78; RESP 18; TEMP 36.4; O2SAT 100; BMI 52.3
--- NOTE | 2022-07-19 12:48 | ED_ITS ---
HPI - Psych General Chief Complaint: Psychiatric Symptoms <Ana Jacobs NP - Last Filed: 07/19/22 12:51> Stated Complaint: crisi <Ana Jacobs NP - Last Filed: 07/19/22 12:51> Time Seen by Provider: 07/19/22 13:21 <Ana Jacobs NP - Last Filed: 07/19/22 12:51> Source: patient <EDILSON James - Last Filed: 07/19/22 17:50> Mode of arrival: ambulatory <EDILSON James - Last Filed: 07/19/22 17:50> Limitations: no limitations <EDILSON James - Last Filed: 07/19/22 17:50> History of Present Illness HPI Narrative: Patient is a 26 year old assigned female at with a history of PTSD and MDD presenting to the emergency department today with suicidal ideation. Patient states that she has thoughts of hitting her head against the wall. Patient denies any dizziness, lightheadedness, abdominal pain, nausea, vomiting, fever, chills, blurry vision, double vision, loss of vision, chest pain, difficulty breathing, shortness of breath, back pain, night sweats, pain with urination, increased urinary frequency, increased urinary urgency, blood in her urine or stool, syncope or a near syncopal episode, recent trauma or falls, bowel incontinence, bladder incontinence, bowel retention, bladder retention, or any other complaints at this time. <EDILSON James - Last Filed: 07/19/22 17:50> MD complaint: suicidal ideation and feels depressed <EDILSON James - Last Filed: 07/19/22 17:50> Onset (ago): day(s) <EDILSON James - Last Filed: 07/19/22 17:50> Duration: constant <EDILSON James - Last Filed: 07/19/22 17:50> History of same: Yes <EDILSON James - Last Filed: 07/19/22 17:50> Relieving factors: none <EDILSON James Last Filed: 07/19/22 17:50> Exacerbating factors: none <EDILSON James - Last Filed: 07/19/22 17:50> Associated psychiatric symptoms: none <EDILSON James - Last Filed: 07/19/22 17:50> Associated symptoms: denies other symptoms <EDILSON James - Last Filed: 07/19/22 17:50> Treatments prior to arrival: none <EDILSON James - Last Filed: 07/19/22 17:50> If self harm: admits thoughts of self harm and has plan <EDILSON James - Last Filed: 07/19/22 17:50> Related Data Home Medications: Previous Rx's Medication Instructions Recorded clonidine HCl 0.1 mg tablet 0.05 mg PO BID@0900,1500 30 days 12/13/21 #15 tabs clonidine HCl 0.1 mg tablet 0.1 mg PO BEDTIME 30 days #30 tabs 12/13/21 duloxetine 30 mg capsule,delayed 30 mg PO DAILY 30 days #30 caps 12/13/21 release topiramate 25 mg tablet 25 mg PO BEDTIME 30 days #30 tabs 12/13/21 trazodone 100 mg tablet 100 mg PO BEDTIME 30 days #30 tabs 12/13/21 <Ana Jacobs NP - Last Filed: 07/19/22 12:51> Allergies/Adverse Reactions: Allergies Allergy/AdvReac Type Severity Reaction Status Date / Time No Known Allergies Allergy Verified 05/23/20 13:16 <Ana Jacobs NP - Last Filed: 07/19/22 12:51> Review of Systems Constitutional: Constitutional: Reports no additional constitutional complaints, Denies chills, Denies fever(s) and Denies night sweats <EDILSON James - Last Filed: 07/19/22 17:50> Eyes: Eyes: Reports no additional eye complaints, Denies blurry vision, Denies change in vision, Denies diplopia, Denies eye discharge, Denies loss of vision and Denies eye pain <EDILSON James - Last Filed: 07/19/22 17:50> ENT: Denies dizziness <EDILSON James Last Filed: 07/19/22 17:50> Cardiovascular: Cardiovascular: Reports no additional cardiovascular complaints, Denies chest pain, Denies lightheadedness, Denies Loss of Consciousness and Denies dyspnea <EDILSON James - Last Filed: 07/19/22 17:50> Respiratory: Respiratory: Reports no additional respiratory complaints and Denies dyspnea <EDILSON James - Last Filed: 07/19/22 17:50> Gastrointestinal: Gastrointestinal: Reports no additional gastrointestinal complaints, Denies abdominal pain, Denies melena, Denies hematochezia, Denies change in bowel habits and Denies change in stool character <EDILSON James - Last Filed: 07/19/22 17:50> Genitourinary: Genitourinary: Denies hematuria, Denies urinary frequency, Denies dysuria, Denies urinary incontinence, Denies urinary hesitancy and Denies urinary urgency <EDILSON James - Last Filed: 07/19/22 17:50> Musculoskeletal: Musculoskeletal: Reports no additional musculoskeletal complaints, Denies numbness and Denies tingling <EDILSON James - Last Filed: 07/19/22 17:50> Neurologic: Denies dizziness, Denies loss of vision, Denies numbness and Denies tingling <EDILSON James - Last Filed: 07/19/22 17:50> Psychiatric: Psychiatric: Reports no additional psychiatric complaints and Reports suicidal ideation <EDILSON James - Last Filed: 07/19/22 17:50> Endocrine: Endocrine: Reports no additional endocrine complaints <EDISLON James - Last Filed: 07/19/22 17:50> Hematologic/Lymphatic: Hematologic/Lymphatic: Reports no additional hematologic/lymphatic complaints <EDILSON James - Last Filed: 07/19/22 17:50> Allergic/Immunologic: Allergic/Immunologic: Reports no additional allergic/immunologic complaints <EDILSON James - Last Filed: 07/19/22 17:50> PMFSH Past Medical History Attestation statement: The following information was validated with the patient. <EDILSON James - Last Filed: 07/19/22 17:50> Source: old records reviewed and nursing notes reviewed <EDILSON James - Last Filed: 07/19/22 17:50> Social History Social History: Social History Household Members: None Housing: Apartment Do you presently have visiting nurse or other home services: No Alcohol intake: never Patient Tobacco Use Status: Current someday Tobacco user Tobacco use type: Cigarette Cigarette Packs Per Day: 0.2 Cigarettes Per Day: 4.0 Smoked in Last 30 Days: Yes e-Cigarette/Vaping Use: Never Used Second Hand Smoke Exposure: No Use of substances other than those prescribed or required for medical reasons: Yes Substance Use Type: Marijuana Advance Directives: No Advance Directives Information Provided: Yes Healthcare Proxy: No Guardian: No Patient : No service: No Sexual orientation: Don't Know <Ana Jacobs NP - Last Filed: 07/19/22 12:51> Physical Exam Vital Signs: Vital Signs: Last Vital Signs Temp 97.5 F 07/19/22 12:48 Pulse 78 07/19/22 12:48 Resp 18 07/19/22 12:48 BP 136/87 07/19/22 12:48 Pulse Ox 100 07/19/22 12:48 O2 Del Method 07/19/22 12:48 BMI result Body Mass Index 52.3 <Ana Jacobs NP - Last Filed: 07/19/22 12:51> Vital Signs: Last Vital Signs Temp 97.5 F 07/19/22 12:48 Pulse 78 07/19/22 12:48 Resp 18 07/19/22 12:48 BP 136/87 07/19/22 12:48 Pulse Ox 100 07/19/22 12:48 O2 Del Method 07/19/22 12:48 BMI result Body Mass Index 52.3 <EDILSON James - Last Filed: 07/19/22 17:50> Const: General: cooperative, no acute distress, alert and awake <EDILSON James - Last Filed: 07/19/22 17:50> Nutritional Appearance: well nourished <EDILSON James - Last Filed: 07/19/22 17:50> Orientation/consciousness: patient oriented x3 <EDILSON James - Last Filed: 07/19/22 17:50> Limitations: no limitations <EDILSON James - Last Filed: 07/19/22 17:50> HEENT: Head: Yes normal to inspection and Yes atraumatic <Sujatha Lopez [place] - Last Filed: 07/19/22 17:50> Ears: hearing grossly normal bilaterally and external ears normal <Sujatha Lopez VT - Last Filed: 07/19/22 17:50> General nose exam: Normal external nose present, no nasal discharge noted and no epistaxis <Sujatha Lopez [facility] Last Filed: 07/19/22 17:50> Face and sinus: Yes normal facial exam, No abrasion and No laceration <Sujatha Lopez VT - Last Filed: 07/19/22 17:50> Mouth: Normal oral and palatal mucosa present, no drooling and no muffled voice <Sujatha Lopez VT - Last Filed: 07/19/22 17:50> Eyes: General: appearance normal, both eyes and all related structures <Sujatha Lopez [facility] Last Filed: 07/19/22 17:50> Periorbital: periorbital findings normal <Sujatha Lopez VT - Last Filed: 07/19/22 17:50> Eyelids: Yes eyelids normal <Sujatha Lopez VT - Last Filed: 07/19/22 17:50> Conjunctivae: conjunctivae normal <Sujatha Lopez VT - Last Filed: 07/19/22 17:50> Pupils: Equal, round and reactive pupils present <Sujatha Lopez VT - Last Filed: 07/19/22 17:50> EOM: EOMs intact bilaterally <Sujatha Lopez [facility] Last Filed: 07/19/22 17:50> Neck: Neck: Yes normal visual inspection, Yes full ROM and Yes no lymphadenopathy <Sujatha Lopez [facility] Last Filed: 07/19/22 17:50> Chest: Chest palpation & inspection: normal inspection of the chest <Sujatha Hernandessid [facility] Last Filed: 07/19/22 17:50> Resp: Effort & Inspection: normal respiratory effort and able to speak in complete sentences <Sujatha Lopez [facility] Last Filed: 07/19/22 17:50> Auscultation: clear to auscultation bilaterally <Sujatha Hernandessid [facility] Last Filed: 07/19/22 17:50> Cardio: Rate: regular rate <Sujatha Lopez PA - Last Filed: 07/19/22 17:50> Rhythm: regular rhythm <Sujatha Lopez PA - Last Filed: 07/19/22 17:50> GI: Inspection: Yes normal to inspection <Sujatha Lopez PA - Last Filed: 07/19/22 17:50> Palpation (GI): Soft to palpation, not firm, nontender and no guarding <Sujatha Lopez PA - Last Filed: 07/19/22 17:50> Neuro: General: patient oriented x3 and moves all extremities <Sujatha Lopez PA - Last Filed: 07/19/22 17:50> Cranial nerves: Yes Equal, round and reactive pupils present <Sujatha Lopez PA - Last Filed: 07/19/22 17:50> Cognition (Neuro): normal cognition <Sujatha Lopez PA - Last Filed: 17:50> Motor exam (neuro): 5/5 motor strength present throughout <Sujatha Lopez PA - Last Filed: 07/19/22 17:50> Sensory Exam: Normal double simultaneous stimulation for sensation <Sujatha Lopez PA - Last Filed: 07/19/22 17:50> Coordination: [id number] test normal <Sujatha Lopez PA - Last Filed: 07/19/22 17:50> Extrem: General: Yes normal to inspection, Yes full ROM and Yes capillary refill normal <Sujatha Lopez PA - Last Filed: 07/19/22 17:50> Psych: Appearance: grossly normal <Sujatha Lopez PA - Last Filed: 07/19/22 17:50> Mental Status: mental status grossly normal <Sujatha Lopez PA - Last Filed: 07/19/22 17:50> Affect: Sad affect present <Sujatha Lopez PA - Last Filed: 07/19/22 17:50> Attitude: Guarded attititude/behavior present <Sujatha Lopez PA - Last Filed: 07/19/22 17:50> Thought process: Circumstantial thought process present <Sujatha Lopez PA - Last Filed: 07/19/22 17:50> Thought content: Suicidality present and Homicidality present <Sujatha Lopez PA - Last Filed: 07/19/22 17:50> Insight: Limited insight present (Psych) <EDILSON James - Last Filed: 07/19/22 17:50> Judgement: Limited judgement present (Psych) <EDILSON James - Last Filed: 07/19/22 17:50> Course Course Course Narrative: This is a rapid medical exam. Deferred additional HPI, ROS, PE to primary provider. 26 yo female with history of depression, PTSD here with thoughts of self harm x weeks. h/o self injury with laceration to right thigh done one week ago as self injury. Will need immediate bedding. Labs, LYON, covid screen ordered. VSS. <Ana Jacobs NP - Last Filed: 07/19/22 12:51> Medical Decision Making Medical Decision Making MDM Narrative: Patient is a 26 year old assigned female at with a history of PTSD and MDD presenting to the emergency department today with suicidal and homicidal ideation. Patient's physical exam was unremarkable. Patient's blood work was unremarkable. Patient's urine showed no acute process. Patient was evaluated by N who recommended admission. I explained my physical exam findings as well as all test results to the patient. I answered all questions asked by the patient. Patient verbalized agreement and understanding with this treatment plan and admission. <EDILSON James - Last Filed: 07/19/22 17:50> Differential Diagnosis Differential Diagnoses: The differential diagnosis associated with the presentation includes <EDILSON James - Last Filed: 07/19/22 17:50> SI/HI <EDILSON James - Last Filed: 07/19/22 17:50> Lab Data MDM Lab Attestation statement: I reviewed the patient's lab results. <EDILSON James - Last Filed: 07/19/22 17:50> Result Diagrams: : 07/19/22 13:54 07/19/22 13:54 <Ana Jacobs NP - Last Filed: 07/19/22 12:51> Labs: Lab Results 07/19/22 07/19/22 07/19/22 Range/Units 13:23 13:54 13:54 WBC 8.2 (4.8-10.8) X10*3/uL RBC 4.94 (4.20-5.50) X10*6/uL Hgb 13.0 (12.0-16.0) g/dl Hct 39.7 (37.0-47.0) % MCV 80.4 (80.0-98.0) fL MCH 26.3 L (27.0-33.0) pg MCHC 32.7 (31.0-35.0) g/dl RDW 13.4 (11.0-16.0) % Plt Count 384 (160-400) X10*3/uL MPV 9.6 (9.4-12.3) fL Immature Gran % (Auto) 0.2 (0.0-0.4) % Neut % (Auto) 57.8 (45-73) % Lymph % (Auto) 34.8 (20-40) % [place] % (Auto) 5.6 (2-11) % Eos % (Auto) 1.2 (0-4) % Baso % (Auto) 0.4 (0-2) % Lymph # (Auto) 2.8 (1.2-4.9) X10*3/uL [place] # (Auto) 0.5 (0.1-1.2) X10*3/uL Eos # (Auto) 0.1 (0.0-0.4) X10*3/uL Baso # (Auto) 0.0 (0.0-0.2) X10*3/uL Abs Immat Gran (auto) 0.02 (0.00-0.03) X10*3/uL Absolute Neuts (auto) 4.7 (2.0-8.3) x10*3/uL Absolute Nucleated RBC 0.000 (0.0-0.012) X10*3/uL Nucleated RBC % (auto) 0.0 (0.0-0.2) /100WBC Sodium 139 (135-145) mmol/L Potassium 4.1 (3.3-5.1) mmol/L Chloride 108 (96-108) mmol/L Carbon Dioxide 21 L (22-29) mmol/L Anion Gap 14 (12-20) BUN 8 L (9-16) mg/dL Creatinine 0.76 (0.5-1.4) mg/dL Estim Creat Clear Calc 134.4 Estimated GFR > 60 Random Glucose 106 (60-115) mg/dL Calcium 9.3 (8.4-10.2) mg/dL Total Bilirubin 0.3 (0.0-1.0) mg/dL Direct Bilirubin < 0.2 (0.0-0.5) mg/dL AST 22 (5-31) U/L ALT 28 (0-31) U/L Alkaline Phosphatase 87 (39-117) U/L Total Protein 7.3 (6.5-8.0) g/dL Albumin 4.2 (3.5-5.0) g/dL Urine Test (NEGATIVE) Salicylates < 5.0 L (15-30) mg/dL Urine Opiates Screen (Not Detect) Urine Fentanyl Screen (Not Detect) Acetaminophen < 1 (<30) mcg/mL Ur Barbiturates Screen (Not Detect) Ur Phencyclidine Scrn (Not Detect) Ur Amphetamines Screen (Not Detect) U Benzodiazepines Scrn (Not Detect) Urine Cocaine Screen (Not Detect) U Marijuana (THC) Screen (Not Detect) Ethyl Alcohol mg/dL COVID-19 (YARI) Negative (Negative) COVID-19 Clin Com See Note 07/19/22 07/19/22 07/19/22 Range/Units 13:54 14:00 14:01 WBC (4.8-10.8) X10*3/uL RBC (4.20-5.50) X10*6/uL Hgb (12.0-16.0) g/dl Hct (37.0-47.0) % MCV (80.0-98.0) fL MCH (27.0-33.0) pg MCHC (31.0-35.0) g/dl RDW (11.0-16.0) % Plt Count (160-400) X10*3/uL MPV (9.4-12.3) fL Immature Gran % (Auto) (0.0-0.4) % Neut % (Auto) (45-73) % Lymph % (Auto) (20-40) % [place] % (Auto) (2-11) % Eos % (Auto) (0-4) % Baso % (Auto) (0-2) % Lymph # (Auto) (1.2-4.9) X10*3/uL [place] # (Auto) (0.1-1.2) X10*3/uL Eos # (Auto) (0.0-0.4) X10*3/uL Baso # (Auto) (0.0-0.2) X10*3/uL Abs Immat Gran (auto) (0.00-0.03) X10*3/uL Absolute Neuts (auto) (2.0-8.3) x10*3/uL Absolute Nucleated RBC (0.0-0.012) X10*3/uL Nucleated RBC % (auto) (0.0-0.2) /100WBC Sodium (135-145) mmol/L Potassium (3.3-5.1) mmol/L Chloride (96-108) mmol/L Carbon Dioxide (22-29) mmol/L Anion Gap (12-20) BUN (9-16) mg/dL Creatinine (0.5-1.4) mg/dL Estim Creat Clear Calc Estimated GFR Random Glucose (60-115) mg/dL Calcium (8.4-10.2) mg/dL Total Bilirubin (0.0-1.0) mg/dL Direct Bilirubin (0.0-0.5) mg/dL AST (5-31) U/L ALT (0-31) U/L Alkaline Phosphatase (39-117) U/L Total Protein (6.5-8.0) g/dL Albumin (3.5-5.0) g/dL Urine Test NEGATIVE (NEGATIVE) Salicylates (15-30) mg/dL Urine Opiates Screen Not Detected (Not Detect) Urine Fentanyl Screen Not Detected (Not Detect) Acetaminophen (<30) mcg/mL Ur Barbiturates Screen Not Detected (Not Detect) Ur Phencyclidine Scrn Not Detected (Not Detect) Ur Amphetamines Screen Not Detected (Not Detect) U Benzodiazepines Scrn Not Detected (Not Detect) Urine Cocaine Screen Not Detected (Not Detect) U Marijuana (THC) Screen POSITIVE H (Not Detect) Ethyl Alcohol < 10 mg/dL COVID-19 (YARI) (Negative) COVID-19 Clin Com <Ana Jacobs NP - Last Filed: 07/19/22 12:51> Lab Results 12/29/22 12/29/22 12/29/22 Range/Units 13:23 13:54 13:54 WBC 8.2 (4.8-10.8) X10*3/uL RBC 4.94 (4.20-5.50) X10*6/uL Hgb 13.0 (12.0-16.0) g/dl Hct 39.7 (37.0-47.0) % MCV 80.4 (80.0-98.0) fL MCH 26.3 L (27.0-33.0) pg MCHC 32.7 (31.0-35.0) g/dl RDW 13.4 (11.0-16.0) % Plt Count 384 (160-400) X10*3/uL MPV 9.6 (9.4-12.3) fL Immature Gran % (Auto) 0.2 (0.0-0.4) % Neut % (Auto) 57.8 (45-73) % Lymph % (Auto) 34.8 (20-40) % [place] % (Auto) 5.6 (2-11) % Eos % (Auto) 1.2 (0-4) % Baso % (Auto) 0.4 (0-2) % Lymph # (Auto) 2.8 (1.2-4.9) X10*3/uL [place] # (Auto) 0.5 (0.1-1.2) X10*3/uL Eos # (Auto) 0.1 (0.0-0.4) X10*3/uL Baso # (Auto) 0.0 (0.0-0.2) X10*3/uL Abs Immat Gran (auto) 0.02 (0.00-0.03) X10*3/uL Absolute Neuts (auto) 4.7 (2.0-8.3) x10*3/uL Absolute Nucleated RBC 0.000 (0.0-0.012) X10*3/uL Nucleated RBC % (auto) 0.0 (0.0-0.2) /100WBC Sodium 139 (135-145) mmol/L Potassium 4.1 (3.3-5.1) mmol/L Chloride 108 (96-108) mmol/L Carbon Dioxide 21 L (22-29) mmol/L Anion Gap 14 (12-20) BUN 8 L (9-16) mg/dL Creatinine 0.76 (0.5-1.4) mg/dL Estim Creat Clear Calc 134.4 Estimated GFR > 60 Random Glucose 106 (60-115) mg/dL Calcium 9.3 (8.4-10.2) mg/dL Total Bilirubin 0.3 (0.0-1.0) mg/dL Direct Bilirubin < 0.2 (0.0-0.5) mg/dL AST 22 (5-31) U/L ALT 28 (0-31) U/L Alkaline Phosphatase 87 (39-117) U/L Total Protein 7.3 (6.5-8.0) g/dL Albumin 4.2 (3.5-5.0) g/dL Urine Test (NEGATIVE) Salicylates < 5.0 L (15-30) mg/dL Urine Opiates Screen (Not Detect) Urine Fentanyl Screen (Not Detect) Acetaminophen < 1 (<30) mcg/mL Ur Barbiturates Screen (Not Detect) Ur Phencyclidine Scrn (Not Detect) Ur Amphetamines Screen (Not Detect) U Benzodiazepines Scrn (Not Detect) Urine Cocaine Screen (Not Detect) U Marijuana (THC) Screen (Not Detect) Ethyl Alcohol mg/dL COVID-19 (YARI) Negative (Negative) COVID-19 Clin Com See Note 07/19/22 07/19/22 07/19/22 Range/Units 13:54 14:00 14:01 WBC (4.8-10.8) X10*3/uL RBC (4.20-5.50) X10*6/uL Hgb (12.0-16.0) g/dl Hct (37.0-47.0) % MCV (80.0-98.0) fL MCH (27.0-33.0) pg MCHC (31.0-35.0) g/dl RDW (11.0-16.0) % Plt Count (160-400) X10*3/uL MPV (9.4-12.3) fL Immature Gran % (Auto) (0.0-0.4) % Neut % (Auto) (45-73) % Lymph % (Auto) (20-40) % [place] % (Auto) (2-11) % Eos % (Auto) (0-4) % Baso % (Auto) (0-2) % Lymph # (Auto) (1.2-4.9) X10*3/uL [place] # (Auto) (0.1-1.2) X10*3/uL Eos # (Auto) (0.0-0.4) X10*3/uL Baso # (Auto) (0.0-0.2) X10*3/uL Abs Immat Gran (auto) (0.00-0.03) X10*3/uL Absolute Neuts (auto) (2.0-8.3) x10*3/uL Absolute Nucleated RBC (0.0-0.012) X10*3/uL Nucleated RBC % (auto) (0.0-0.2) /100WBC Sodium (135-145) mmol/L Potassium (3.3-5.1) mmol/L Chloride (96-108) mmol/L Carbon Dioxide (22-29) mmol/L Anion Gap (12-20) BUN (9-16) mg/dL Creatinine (0.5-1.4) mg/dL Estim Creat Clear Calc Estimated GFR Random Glucose (60-115) mg/dL Calcium (8.4-10.2) mg/dL Total Bilirubin (0.0-1.0) mg/dL Direct Bilirubin (0.0-0.5) mg/dL AST (5-31) U/L ALT (0-31) U/L Alkaline Phosphatase (39-117) U/L Total Protein (6.5-8.0) g/dL Albumin (3.5-5.0) g/dL Urine Test NEGATIVE (NEGATIVE) Salicylates (15-30) mg/dL Urine Opiates Screen Not Detected (Not Detect) Urine Fentanyl Screen Not Detected (Not Detect) Acetaminophen (<30) mcg/mL Ur Barbiturates Screen Not Detected (Not Detect) Ur Phencyclidine Scrn Not Detected (Not Detect) Ur Amphetamines Screen Not Detected (Not Detect) U Benzodiazepines Scrn Not Detected (Not Detect) Urine Cocaine Screen Not Detected (Not Detect) U Marijuana (THC) Screen POSITIVE H (Not Detect) Ethyl Alcohol < 10 mg/dL COVID-19 ([facility]ARI) (Negative) COVID-19 Clin Com <EDILSON James - Last Filed: 07/19/22 17:50> Discharge Plan Discharge Clinical Impression: Major depressive disorder, recurrent, moderate, Suicidal ideation <Ana Jacobs NP - Last Filed: 07/19/22 12:51> Patient Disposition: Admitted As Inpatient <Ana Jacobs NP - Last Filed: 07/19/22 12:51> Prescriptions: No Action clonidine HCl 0.1 mg Tablet 0.05 mg PO BID@0900,1500 30 Days Qty: 15 0RF Protocol: Hold for SBP< HOLD for SBP < : 90 clonidine HCl 0.1 mg Tablet 0.1 mg PO BEDTIME 30 Days Qty: 30 0RF Protocol: Hold for SBP< HOLD for SBP < : 90 topiramate 25 mg Tablet 25 mg PO BEDTIME 30 Days Qty: 30 0RF trazodone 100 mg Tablet 100 mg PO BEDTIME 30 Days Qty: 30 0RF duloxetine 30 mg Capsule,Delayed Release(Dr/Ec) 30 mg PO DAILY 30 Days Qty: 30 0RF <Ana Jacobs NP - Last Filed: 07/19/22 12:51>
--- NOTE | 2022-07-19 13:34 | PC.NURSE ---
pt is a/o x 4 no sob/jennifer noted skin pink warm dry speaks in full sentences. pt states si and hi towards her ex-boyfriend. pt seen by mlp (kelly). lunch at bedside. pt swabbed for covid. pt aware of plan of care for lab work.
[2022-07-19 13:45] LABS: COVID-19 Test Negative (Negative); IDNOW Serial# BCCEAD1C
--- NOTE | 2022-07-19 13:48 | PC.NURSE ---
pt states si with plan to take gabapentin at home. mlp aware.
--- NOTE | 2022-07-19 14:00 | PC.NURSE ---
smart sheet done by this rn.
[2022-07-19 14:10] LABS: MANUAL DIFF FLAG NO
[2022-07-19 14:11] LABS: Basophils Percent Auto 0.4 % (0-2); Eosinophils Absolute Auto 0.1 X10*3/uL (0.0-0.4); Eosinophils Percent Auto 1.2 % (0-4); Hematocrit 39.7 % (37.0-47.0); Imm Gran Abs Auto 0.02 X10*3/uL (0.00-0.03); Imm Gran Pct Auto 0.2 % (0.0-0.4); Lymphocytes Absolute Auto 2.8 X10*3/uL (1.2-4.9); Lymphocytes Percent Auto 34.8 % (20-40); Mean Corpuscular HGB Conc 32.7 g/dl (31.0-35.0); Mean Corpuscular Hemoglobin 26.3 pg (27.0-33.0); Mean Corpuscular Volume 80.4 fL (80.0-98.0); Mean Platelet Volume 9.6 fL (9.4-12.3); Monocytes Absolute Auto 0.5 X10*3/uL (0.1-1.2); Monocytes Percent Auto 5.6 % (2-11); Neutrophils Absolute Auto 4.7 x10*3/uL (2.0-8.3); Neutrophils Percent Auto 57.8 % (45-73); Platelet Count 384 X10*3/uL (160-400); Red Blood Count 4.94 X10*6/uL (4.20-5.50); Red Cell Distribution Width 13.4 % (11.0-16.0); White Blood Count 8.2 X10*3/uL (4.8-10.8)
[2022-07-19 14:12] LABS: UPreg QC Valid YES; Urine Pregnancy NEGATIVE (NEGATIVE)
[2022-07-19 14:20] LABS: Amphetamine Screen Urine Not Detected (Not Detect); Barbiturates, Urine Not Detected (Not Detect); Benzodiazepines Screen Urine Not Detected (Not Detect); Cannabinoid Screen Urine POSITIVE (Not Detect); Cocaine Screen Urine Not Detected (Not Detect); Fentanyl, urine Not Detected (Not Detect); Opiate Screen Urine Not Detected (Not Detect); Phencyclidine Screen Urine Not Detected (Not Detect)
[2022-07-19 14:37] LABS: Acetaminophen LAB < 1 mcg/mL (<30); Alanine Aminotransferase 28 U/L (0-31); Albumin Level 4.2 g/dL (3.5-5.0); Alkaline Phosphatase 87 U/L (39-117); Anion Gap 14 (12-20); Aspartate Amino Transferase 22 U/L (5-31); Bilirubin Direct < 0.2 mg/dL (0.0-0.5); Bilirubin Total 0.3 mg/dL (0.0-1.0); Blood Urea Nitrogen 8 mg/dL (9-16); Calcium 9.3 mg/dL (8.4-10.2); Carbon Dioxide 21 mmol/L (22-29); Chloride 108 mmol/L (96-108); Creatinine Clr Calc Pharmacy 134.4; Estimated Glomerular Filt Rate > 60; Ethanol < 10 mg/dL; Glucose Random 106 mg/dL (60-115); Potassium 4.1 mmol/L (3.3-5.1); Salicylate < 5.0 mg/dL (15-30); Sodium 139 mmol/L (135-145); Total Protein 7.3 g/dL (6.5-8.0)
--- NOTE | 2022-07-19 14:46 | PC.NURSE ---
smart sheet faxed again to [facility].
[2022-07-19 19:32] VITALS: BP 119/55; PULSE 63; RESP 17; TEMP 36.8; O2SAT 99
--- NOTE | 2022-07-19 19:42 | PHA.MEDREC ---
Pharmacy Consult ? Medication Reconciliation Pharmacy has completed the medication reconciliation. Checked med rec done by nursing
[2022-07-19 23:02] VITALS: BP 147/65; PULSE 60; RESP 16; TEMP 36.2; O2SAT 97
[2022-07-19] MEDS: traZODone HCL 50 MG TABLET PO ×2 (23:09→23:10)
--- NOTE | 2022-07-20 01:33 | PC.ADMIT ---
Pt is a 26 y/o female who presented to from ED at 2200 on 07/19/22 with increased SI with self-injurious behavior. Pt was referred to be assessed by her PCP. and increased depression and anxiety as well as self harming behaviors via cutting. She reports self harm by cutting a week ago and has a healing wound above her right knee. She reports she recently moved into her mothers home after being evicted from her apartment a few days ago due to not paying her rent. She reports she has been really depressed , sleeping all the time for the past 2 weeks, not working and has no financial resources currently. Margarita reports she has not taken her medications in months , she reports her psychiatrist 1 month ago added Latuda to her medication regimen. She reports she has not been taking the Latuda and missed her last appointment 2 weeks ago. Tox screen was positive for THC and small amount of alcohol
[2022-07-20 08:41] VITALS: BP 131/69; PULSE 67; RESP 16; TEMP 36.6; O2SAT 98
[2022-07-20 08:41] LABS: Cholesterol 222 mg/dL; Estimated Average Glucose 105 mg/dL; HDL Cholesterol 38 mg/dL; Hemoglobin A1c % 5.3 %; LDL Cholesterol Calculated 162 mg/dl; Triglycerides 110 mg/dL
[2022-07-20 09:22] LABS: Thyroid Stimulating Hormone 3.64 uIU/mL (0.32-4.0)
[2022-07-20 13:55] LABS: COVID-19 Test Negative (Negative); IDNOW Serial# BCCEAD1C
[2022-07-20 15:03] LABS: Vitamin B12 341 pg/mL (200-900)
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
[2022-07-20 18:00] VITALS: BP 123/83; PULSE 66; RESP 18; TEMP 36.3
[2022-07-20] MEDS: cloNIDine HCL 0.1 MG TABLET PO (18:45)
[2022-07-20] MEDS: Lurasidone HCl 20 MG TABLET PO (21:33)
[2022-07-20] MEDS: Topiramate 25 MG TABLET PO (21:33)
[2022-07-20] MEDS: Gabapentin 100 MG CAPSULE 200 MG PO (21:37)
[2022-07-20] MEDS: traZODone HCL 100 MG TABLET PO (21:37)
[2022-07-21 08:30] VITALS: BP 138/83; PULSE 59; TEMP 36.3
[2022-07-21] MEDS: buPROPion HCl XL 300 MG TAB.ER.24H PO (08:58)
[2022-07-21] MEDS: Omeprazole 20 MG CAPSULE.DR PO (08:59)
[2022-07-21] MEDS: Ibuprofen 800 MG TABLET PO (11:10)
[2022-07-21 18:00] VITALS: BP 131/7; PULSE 96; RESP 18; TEMP 36.2; O2SAT 98
--- NOTE | 2022-07-21 18:01 | P.PNPSI_ITS ---
Subjective Subjective Date of Service: 07/21/22 Reason For Visit: SI, depression Interim History: Margarita is visable in milieu, participating, and is connecting with peers and team. Reports poor sleep-will increase Trazodone ty 50 mg to assist with sx. Working on art project, coping skills. She tells team she received a difficult phone call last evening-she did not elaborate on this in our meeting today. Medication Compliance: Yes Side effects from medications: No Attending Groups: Yes Review of Systems Acute medical concerns: No Medical Review of Systems: unchanged Mental Status Exam Mental Status Exam Patient Appearance: Appropriate Patient Orientation: Person, Place, Time and Situation Level of Consciousness: Alert Patient Behavior: Talkative, Cooperative, Anxious, Distractible and Good Eye Contact Mood Description: Depressed and Anxious Affect Description: Constricted Patient Cognition Impaired: No Ability to Follow Directions: Good Speech Pattern: Spontaneous Speech Memory Description: Intact and Episodic Impaired Hallucinations: None Delusions: Not Present Perceptual Disturbances: Depersonalization and Derealization Thought Process: Rumination Thought Content: positive for Perseveration and positive for Suicidal Ideation Depressive Symptoms: Increased Anxiety, Increased Irritability, Difficulty Sleeping, Increased Fatigue and Thoughts of /Suicide Judgement: Fair Diagnostics Vital Signs (24Hr): Vital Signs - 24 hr 07/21/22 08:30 Temperature 97.3 F Pulse Rate 59 Blood Pressure 138/83 BMI result Body Mass Index 52.3 Labs Results: 07/19/22 13:54 07/19/22 13:54 Labs: Laboratory Results - last 48 hr 07/20/22 07/20/22 07/20/22 07:59 07:59 07:59 Estimat Average Glucose 105 Hemoglobin A1c % 5.3 Magnesium 2.0 Triglycerides 110 Cholesterol 222 LDL Cholesterol, Calc 162 HDL Cholesterol 38 Vitamin B12 341 Folate 11.0 TSH 3.64 Free T4 1.10 COVID-19 ([facility]) COVID-19 Clin Com 07/20/22 13:30 Estimat Average Glucose Hemoglobin A1c % Magnesium Triglycerides Cholesterol LDL Cholesterol, Calc HDL Cholesterol Vitamin B12 Folate TSH Free T4 COVID-19 ([facility]ARI) Negative COVID-19 Clin Com See Note Medications Medications Current Medications Acetaminophen (Acetaminophen 325 Mg Tablet) 650 mg PO Q6H PRN PRN Reason: Headache/Pain Mild Scale (1-3) Al Hydroxide/Mg Hydroxide (Magnesium Hydrox/Alum Hydrox 30 Ml Oral.Susp) 30 ml PO Q6H PRN PRN Reason: Heartburn/Nausea Bupropion HCl (Bupropion Hcl Xl 300 Mg Tab.Er.24h) 300 mg PO DAILY [facility] Last Admin: 07/21/22 08:58 Dose: 300 mg Clonidine HCl (Clonidine Hcl 0.1 Mg Tablet) 0.1 mg PO TID PRN; Protocol PRN Reason: anxiety Last Admin: 07/20/22 18:45 Dose: 0.1 mg Gabapentin (Gabapentin 100 Mg Capsule) 200 mg PO TID PRN PRN Reason: anxiety Last Admin: 07/20/22 21:37 Dose: 200 mg Hydroxyzine HCl (Hydroxyzine Hcl 25 Mg Tablet) 25 mg PO Q6H PRN PRN Reason: Anxiety Ibuprofen (Ibuprofen 800 Mg Tablet) 800 mg PO Q8H PRN PRN Reason: Pain, Mild (Pain Scale 1-3) Last Admin: 07/21/22 11:10 Dose: 800 mg Lurasidone HCl (Lurasidone Hcl 20 Mg Tablet) 20 mg PO BEDTIME [facility] Last Admin: 07/20/22 21:33 Dose: 20 mg Magnesium Hydroxide (Milk Of Magnesia 30 Ml Oral.Susp) 30 ml PO DAILY PRN PRN Reason: Constipation Non-Formulary Medication (Sprintec 28) 1 tab PO DAILY [facility] Omeprazole (Omeprazole 20 Mg Capsule.Dr) 20 mg PO DAILY@0630 [facility] Last Admin: 07/21/22 08:59 Dose: 20 mg Topiramate (Topiramate 25 Mg Tablet) 25 mg PO BEDTIME [facility] Last Admin: 07/20/22 21:33 Dose: 25 mg Trazodone HCl (Trazodone Hcl 50 Mg Tablet) 150 mg PO BEDTIME PRN PRN Reason: Insomnia Allergies Allergies Allergy/AdvReac Type Severity Reaction Status Date / Time atomoxetine [From Strattera] AdvReac Severe stomach Verified 07/20/22 15:45 pain citalopram [From Celexa] AdvReac Severe diaphoresis Verified 07/20/22 15:45 aripiprazole [From Abilify] AdvReac Intermediate weight gain Verified 07/20/22 15:45 paroxetine [From Paxil] AdvReac increase Verified 07/20/22 15:45 in appetite lamictal AdvReac unknown Uncoded 07/20/22 15:45 Assessment & Plan Assessment & Plan (1) Chronic post-traumatic stress disorder (PTSD): Status: Acute Code(s): F43.12 - Post-traumatic stress disorder, chronic (2) Major depressive disorder, recurrent, moderate: Status: Acute Code(s): F33.1 - Major depressive disorder, recurrent, moderate Plan 26 yo female, hx of PTSD, depression, hx of SIBS. Reports SI with plan to overdose on Gabapentin. Pt reports non compliance with medications and follow up appointments. She was scheduled to begin Latuda but was non compliant with this as well. Pt reports she will be able to come to team if feeling unsafe. Currently participating in milieu and with team. Plan: Re-start regime which was verified with [facility], Dr. Blanco (PCP), and pt's pharmacy. Latuda 20 mg hs Collateral contact as needed DBT Focus in milieu Diagnostics as indicated. 07/21/22: Increase Trazodone to 150 mg hs Patient educated on: therapeutic strategies Informed Consent: further education needed Reason for contiued inpatient stay Substantial Risk for: harm to self and rapid decompensation Time Spent With Patient Time: Total time managing care of this patient today _15___ minutes.
[2022-07-21] MEDS: Magnesium Hydrox/Alum Hydrox 30 ML ORAL.SUSP PO (22:21)
[2022-07-21] MEDS: Gabapentin 100 MG CAPSULE 200 MG PO (22:23)
[2022-07-21] MEDS: cloNIDine HCL 0.1 MG TABLET PO (22:23)
[2022-07-21] MEDS: Topiramate 25 MG TABLET PO (22:23)
[2022-07-21] MEDS: Lurasidone HCl 20 MG TABLET PO (22:23)
[2022-07-21] MEDS: traZODone HCL 50 MG TABLET 150 MG PO (22:24)
[2022-07-22 08:30] VITALS: BP 125/66; PULSE 80; TEMP 36.4
[2022-07-22] MEDS: Omeprazole 20 MG CAPSULE.DR PO (09:09)
[2022-07-22] MEDS: buPROPion HCl XL 300 MG TAB.ER.24H PO (09:11)
[2022-07-22 11:41] LABS: COVID-19 Test Negative (Negative); IDNOW Serial# BCCEAD1C
[2022-07-22] MEDS: LORazepam 0.5 MG TABLET PO ×2 (12:25→22:28)
[2022-07-22] MEDS: cloNIDine HCL 0.2 MG TABLET PO ×2 (12:55→22:26)
[2022-07-22] MEDS: hydrOXYzine HCL 25 MG TABLET PO ×2 (12:55→22:29)
[2022-07-22] MEDS: Gabapentin 100 MG CAPSULE 200 MG PO ×2 (12:55→22:25)
[2022-07-22] MEDS: Ibuprofen 800 MG TABLET PO ×2 (12:55→22:28)
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
[2022-07-22 18:00] VITALS: BP 120/76; PULSE 76; RESP 18; TEMP 36.6; O2SAT 98
[2022-07-22] MEDS: traZODone HCL 50 MG TABLET 150 MG PO (22:25)
[2022-07-22] MEDS: Lurasidone HCl 40 MG TABLET PO (22:26)
[2022-07-22] MEDS: Topiramate 25 MG TABLET PO (22:27)
[2022-07-23] MEDS: Omeprazole 20 MG CAPSULE.DR PO (06:41)
[2022-07-23 08:30] VITALS: BP 98/55; PULSE 90; TEMP 36.2
[2022-07-23] MEDS: LORazepam 0.5 MG TABLET PO ×2 (10:48→21:27)
[2022-07-23] MEDS: HaloperidoL 5 MG TABLET PO ×2 (10:48→21:27)
[2022-07-23 18:00] VITALS: BP 118/60; PULSE 81; TEMP 36.2; O2SAT 97
--- NOTE | 2022-07-23 18:28 | HO.PSYCHPN ---
Subjective Subjective Date of Service: 07/23/22 Reason For Visit: SI, depression Subjective Notes: Conditional Voluntary Healthcare Proxy: No Guardianship: No Medical Problems Affecting Mental Status: No Interim History: Sedate today with medication changes. Reports they are effective Pt discussed hx with mom and her success with meds. Unfortunately, mom has not has success with meds, so we will continue trials. Slept most of the day due to sedative SE from changes. No outbursts, no adverse effects in addition to sedation. Medication Compliance: Yes Side effects from medications: No Attending Groups: Intermittent Review of Systems Acute medical concerns: No Medical Review of Systems: unchanged Mental Status Exam Mental Status Exam Patient Appearance: Fatigued Patient Orientation: Person, Place, Time and Situation Level of Consciousness: Alert Patient Behavior: Appropriate, Talkative, Cooperative and Good Eye Contact Mood Description: Depressed and Anxious Affect Description: Flat Patient Cognition Impaired: No Ability to Follow Directions: Good Speech Pattern: Spontaneous Speech Memory Description: Intact Hallucinations: None Delusions: Not Present Thought Process: Rumination Thought Content: positive for Circumstantial Depressive Symptoms: Increased Anxiety, Thoughts of /Suicide and Low Self Esteem Judgement: Fair Diagnostics Vital Signs (24Hr): Vital Signs - 24 hr 07/23/22 08:30 Temperature 97.2 F Pulse Rate 90 Blood Pressure 98/55 L BMI result Body Mass Index 52.3 Labs Results: 07/19/22 13:54 07/19/22 13:54 Labs: Laboratory Results - last 48 hr 07/22/22 11:10 COVID-19 ([facility]) Negative COVID-19 Clin Com See Note Imaging Radiology Impressions: ITS Impressions Head CT 07/22/22 15:44 IMPRESSION: 1. There are no acute bleeds or territorial infarcts. There are no acute osseous abnormalities. 2. There is soft tissue swelling in the scalp in the midline in the supraorbital region, consistent with a contusion. 3. No intracranial masses or collections are demonstrated. Medications Medications Current Medications Acetaminophen (Acetaminophen 325 Mg Tablet) 650 mg PO Q6H PRN PRN Reason: Headache/Pain Mild Scale (1-3) Al Hydroxide/Mg Hydroxide (Magnesium Hydrox/Alum Hydrox 30 Ml Oral.Susp) 30 ml PO Q6H PRN PRN Reason: Heartburn/Nausea Last Admin: 07/21/22 22:21 Dose: 30 ml Clonidine HCl (Clonidine Hcl 0.2 Mg Tablet) 0.2 mg PO TID PRN; Protocol PRN Reason: anxiety Last Admin: 07/22/22 22:26 Dose: 0.2 mg Gabapentin (Gabapentin 100 Mg Capsule) 200 mg PO QID PRN PRN Reason: anxiety Last Admin: 07/22/22 22:25 Dose: 200 mg Haloperidol (Haloperidol 5 Mg Tablet) 5 mg PO TID PRN PRN Reason: agitation Last Admin: 07/23/22 10:48 Dose: 5 mg Hydroxyzine HCl (Hydroxyzine Hcl 25 Mg Tablet) 25 mg PO Q6H PRN PRN Reason: Anxiety Last Admin: 07/22/22 22:29 Dose: 25 mg Ibuprofen (Ibuprofen 800 Mg Tablet) 800 mg PO Q8H PRN PRN Reason: Pain, Mild (Pain Scale 1-3) Last Admin: 07/22/22 22:28 Dose: 800 mg Lorazepam (Lorazepam 0.5 Mg Tablet) 0.5 mg PO BID PRN PRN Reason: Anxiety Last Admin: 07/23/22 10:48 Dose: 0.5 mg Lurasidone HCl (Lurasidone Hcl 40 Mg Tablet) 40 mg PO BEDTIME [facility] Last Admin: 07/22/22 22:26 Dose: 40 mg Magnesium Hydroxide (Milk Of Magnesia 30 Ml Oral.Susp) 30 ml PO DAILY PRN PRN Reason: Constipation Non-Formulary Medication (Sprintec 28) 1 tab PO DAILY [facility] Last Admin: 07/23/22 11:33 Dose: Not Given Omeprazole (Omeprazole 20 Mg Capsule.Dr) 20 mg PO DAILY@0630 [facility] Last Admin: 07/23/22 06:41 Dose: 20 mg Topiramate (Topiramate 25 Mg Tablet) 25 mg PO BEDTIME [facility] Last Admin: 07/22/22 22:27 Dose: 25 mg Trazodone HCl (Trazodone Hcl 50 Mg Tablet) 150 mg PO BEDTIME PRN PRN Reason: Insomnia Last Admin: 07/22/22 22:25 Dose: 150 mg Allergies Allergies Allergy/AdvReac Type Severity Reaction Status Date / Time atomoxetine [From Strattera] AdvReac Severe stomach Verified 07/20/22 15:45 pain citalopram [From Celexa] AdvReac Severe diaphoresis Verified 07/20/22 15:45 aripiprazole [From Abilify] AdvReac Intermediate weight gain Verified 07/20/22 15:45 paroxetine [From Paxil] AdvReac increase Verified 07/20/22 15:45 in appetite lamictal AdvReac unknown Uncoded 07/20/22 15:45 Assessment & Plan Assessment & Plan (1) Chronic post-traumatic stress disorder (PTSD): Status: Acute Code(s): F43.12 - Post-traumatic stress disorder, chronic (2) Major depressive disorder, recurrent, moderate: Status: Acute Code(s): F33.1 - Major depressive disorder, recurrent, moderate Plan 26 yo female, hx of PTSD, depression, hx of SIBS. Reports SI with plan to overdose on Gabapentin. Pt reports non compliance with medications and follow up appointments. She was scheduled to begin Latuda but was non compliant with this as well. Pt reports she will be able to come to team if feeling unsafe. Currently participating in milieu and with team. Plan: Re-start regime which was verified with [facility], Dr. Blanco (PCP), and pt's pharmacy. Latuda 20 mg hs Collateral contact as needed DBT [facility] in milieu Diagnostics as indicated. 07/21/22: Increase Trazodone to 150 mg hs 07/22/22: Increase Clonidine, Gabapentin prn's Add Lorazepam prn Increase Latuda to 40 mg daily Haldol 5 mg bid prn 07/23/22: No changes today. continue current regime and plan Reason for contiued inpatient stay Substantial Risk for: rapid decompensation Time Spent With Patient Time: Total time managing care of this patient today _20___ minutes.
[2022-07-23] MEDS: Topiramate 25 MG TABLET PO (21:18)
[2022-07-23] MEDS: Lurasidone HCl 40 MG TABLET PO (21:18)
[2022-07-23] MEDS: Gabapentin 100 MG CAPSULE 200 MG PO (21:26)
[2022-07-23] MEDS: hydrOXYzine HCL 25 MG TABLET PO (21:27)
[2022-07-23] MEDS: traZODone HCL 50 MG TABLET 150 MG PO (21:27)
[2022-07-23] MEDS: cloNIDine HCL 0.2 MG TABLET PO (21:27)
[2022-07-24 06:00] VITALS: BP 108/62; PULSE 78; TEMP 36.6; O2SAT 98
[2022-07-24] MEDS: Omeprazole 20 MG CAPSULE.DR PO (06:09)
--- NOTE | 2022-07-24 12:16 | P.PNPSI_ITS ---
Subjective Subjective Date of Service: 07/24/22 Reason For Visit: SI, depression Subjective Notes: Conditional Voluntary and 3 Day (07/27/22) Healthcare Proxy: No Guardianship: No Medical Problems Affecting Mental Status: No Interim History: Sleeping most of the day. Reports not feeling over-medicated, just tired today. No lability per pt report Will sign TDN for 07/27/22 Reports regime changes to be useful at this time. Medication Compliance: Yes Side effects from medications: Yes (? sedation) Attending Groups: No Review of Systems Acute medical concerns: No Medical Review of Systems: unchanged Mental Status Exam Mental Status Exam Patient Appearance: Fatigued Patient Orientation: Person, Place, Time and Situation Level of Consciousness: Alert Patient Behavior: Appropriate, Talkative, Cooperative and Good Eye Contact Mood Description: Depressed and Anxious Affect Description: Flat Patient Cognition Impaired: No Ability to Follow Directions: Good Speech Pattern: Spontaneous Speech Memory Description: Intact Hallucinations: None Delusions: Not Present Thought Process: Rumination Thought Content: positive for Circumstantial Depressive Symptoms: Increased Anxiety, Thoughts of /Suicide (denies today) and Low Self Esteem Judgement: Fair Diagnostics Vital Signs (24Hr): Vital Signs - 24 hr 07/23/22 18:00 07/24/22 06:00 Temperature 97.2 F 97.8 F Pulse Rate 81 78 Blood Pressure 118/60 108/62 Pulse Oximetry 97 98 Oxygen Delivery Method Room Air Room Air BMI result Body Mass Index 52.3 Labs Results: 07/19/22 13:54 07/19/22 13:54 Imaging Radiology Impressions: ITS Impressions Head CT 07/22/22 15:44 IMPRESSION: 1. There are no acute bleeds or territorial infarcts. There are no acute osseous abnormalities. 2. There is soft tissue swelling in the scalp in the midline in the supraorbital region, consistent with a contusion. 3. No intracranial masses or collections are demonstrated. Medications Medications Current Medications Acetaminophen (Acetaminophen 325 Mg Tablet) 650 mg PO Q6H PRN PRN Reason: Headache/Pain Mild Scale (1-3) Al Hydroxide/Mg Hydroxide (Magnesium Hydrox/Alum Hydrox 30 Ml Oral.Susp) 30 ml PO Q6H PRN PRN Reason: Heartburn/Nausea Last Admin: 07/21/22 22:21 Dose: 30 ml Clonidine HCl (Clonidine Hcl 0.2 Mg Tablet) 0.2 mg PO TID PRN; Protocol PRN Reason: anxiety Last Admin: 07/23/22 21:27 Dose: 0.2 mg Gabapentin (Gabapentin 100 Mg Capsule) 200 mg PO QID PRN PRN Reason: anxiety Last Admin: 07/23/22 21:26 Dose: 200 mg Haloperidol (Haloperidol 5 Mg Tablet) 5 mg PO TID PRN PRN Reason: agitation Last Admin: 07/23/22 21:27 Dose: 5 mg Hydroxyzine HCl (Hydroxyzine Hcl 25 Mg Tablet) 25 mg PO Q6H PRN PRN Reason: Anxiety Last Admin: 07/23/22 21:27 Dose: 25 mg Ibuprofen (Ibuprofen 800 Mg Tablet) 800 mg PO Q8H PRN PRN Reason: Pain, Mild (Pain Scale 1-3) Last Admin: 07/22/22 22:28 Dose: 800 mg Lorazepam (Lorazepam 0.5 Mg Tablet) 0.5 mg PO BID PRN PRN Reason: Anxiety Last Admin: 07/23/22 21:27 Dose: 0.5 mg Lurasidone HCl (Lurasidone Hcl 40 Mg Tablet) 40 mg PO BEDTIME [facility] Last Admin: 07/23/22 21:18 Dose: 40 mg Magnesium Hydroxide (Milk Of Magnesia 30 Ml Oral.Susp) 30 ml PO DAILY PRN PRN Reason: Constipation Non-Formulary Medication (Sprintec 28) 1 tab PO DAILY [facility] Last Admin: 07/24/22 11:17 Dose: Not Given Omeprazole (Omeprazole 20 Mg Capsule.Dr) 20 mg PO DAILY@0630 [facility] Last Admin: 07/24/22 06:09 Dose: 20 mg Topiramate (Topiramate 25 Mg Tablet) 25 mg PO BEDTIME [facility] Last Admin: 07/23/22 21:18 Dose: 25 mg Trazodone HCl (Trazodone Hcl 50 Mg Tablet) 150 mg PO BEDTIME PRN PRN Reason: Insomnia Last Admin: 07/23/22 21:27 Dose: 150 mg Allergies Allergies Allergy/AdvReac Type Severity Reaction Status Date / Time atomoxetine [From Strattera] AdvReac Severe stomach Verified 07/20/22 15:45 pain citalopram [From Celexa] AdvReac Severe diaphoresis Verified 07/20/22 15:45 aripiprazole [From Abilify] AdvReac Intermediate weight gain Verified 07/20/22 15:45 paroxetine [From Paxil] AdvReac increase Verified 07/20/22 15:45 in appetite lamictal AdvReac unknown Uncoded 07/20/22 15:45 Assessment & Plan Assessment & Plan (1) Chronic post-traumatic stress disorder (PTSD): Status: Acute Code(s): F43.12 - Post-traumatic stress disorder, chronic (2) Major depressive disorder, recurrent, moderate: Status: Acute Code(s): F33.1 - Major depressive disorder, recurrent, moderate Plan 26 yo female, hx of PTSD, depression, hx of SIBS. Reports SI with plan to overdose on Gabapentin. Pt reports non compliance with medications and follow up appointments. She was scheduled to begin Latuda but was non compliant with this as well. Pt reports she will be able to come to team if feeling unsafe. Currently participating in milieu and with team. Plan: Re-start regime which was verified with [facility], Dr. Blanco (PCP), and pt's pharmacy. Latuda 20 mg hs Collateral contact as needed [facility] in milieu Diagnostics as indicated. 07/21/22: Increase Trazodone to 150 mg hs 07/22/22: Increase Clonidine, Gabapentin prn's Add Lorazepam prn Increase Latuda to 40 mg daily Haldol 5 mg bid prn 07/23/22: No changes today. continue current regime and plan 07/24/22: Continue current regime Informed Consent: understands Reason for contiued inpatient stay Substantial Risk for: harm to self and rapid decompensation Time Spent With Patient Time: Total time managing care of this patient today _20___ minutes.
[2022-07-24] MEDS: Loperamide HCl 2 MG CAPSULE 4 MG PO (17:42)
[2022-07-24 18:00] VITALS: BP 127/58; PULSE 81; TEMP 36.1; O2SAT 99
[2022-07-24] MEDS: Gabapentin 100 MG CAPSULE 200 MG PO (20:37)
[2022-07-24] MEDS: Lurasidone HCl 40 MG TABLET PO (20:37)
[2022-07-24] MEDS: HaloperidoL 5 MG TABLET PO (20:37)
[2022-07-24] MEDS: cloNIDine HCL 0.2 MG TABLET PO (20:37)
[2022-07-24] MEDS: LORazepam 0.5 MG TABLET PO (20:37)
[2022-07-24] MEDS: Topiramate 25 MG TABLET PO (20:37)
[2022-07-24] MEDS: traZODone HCL 50 MG TABLET 150 MG PO (20:38)
[2022-07-25 06:00] VITALS: BP 90/60; PULSE 76; RESP 16; TEMP 36.2; O2SAT 99
[2022-07-25] MEDS: Omeprazole 20 MG CAPSULE.DR PO (10:42)
[2022-07-25 18:00] VITALS: BP 116/57; PULSE 75; RESP 18; TEMP 36.3; O2SAT 98
--- NOTE | 2022-07-25 18:29 | P.PNPSI_ITS ---
Subjective Subjective Date of Service: 07/25/22 Reason For Visit: SI, depression Subjective Notes: Conditional Voluntary Healthcare Proxy: No Guardianship: No Medical Problems Affecting Mental Status: No Interim History: Planning discharge for 07/27. TDN in place. She reports she believes she will be ready. Asks for info on [employer]-provided Sleeping when tw went to check in again later in the day. Medication Compliance: Yes Side effects from medications: No Attending Groups: Intermittent Review of Systems Acute medical concerns: No Medical Review of Systems: unchanged Mental Status Exam Mental Status Exam Patient Appearance: Fatigued Patient Orientation: Person, Place, Time and Situation Level of Consciousness: Alert Patient Behavior: Appropriate, Talkative, Cooperative and Good Eye Contact Mood Description: Depressed and Anxious Affect Description: Flat Patient Cognition Impaired: No Ability to Follow Directions: Good Speech Pattern: Spontaneous Speech Memory Description: Intact Hallucinations: None Delusions: Not Present Thought Process: Rumination Thought Content: positive for Circumstantial Depressive Symptoms: Increased Anxiety, Thoughts of /Suicide (denies today) and Low Self Esteem Judgement: Fair Diagnostics Vital Signs (24Hr): Vital Signs - 24 hr 07/25/22 06:00 Temperature 97.2 F Pulse Rate 76 Respiratory Rate 16 Blood Pressure 90/60 Pulse Oximetry 99 Oxygen Delivery Method Room Air BMI result Body Mass Index 52.3 Labs Results: 07/19/22 13:54 07/19/22 13:54 Imaging Radiology Impressions: ITS Impressions Head CT 07/22/22 15:44 IMPRESSION: 1. There are no acute bleeds or territorial infarcts. There are no acute osseous abnormalities. 2. There is soft tissue swelling in the scalp in the midline in the supraorbital region, consistent with a contusion. 3. No intracranial masses or collections are demonstrated. Medications Medications Current Medications Acetaminophen (Acetaminophen 325 Mg Tablet) 650 mg PO Q6H PRN PRN Reason: Headache/Pain Mild Scale (1-3) Al Hydroxide/Mg Hydroxide (Magnesium Hydrox/Alum Hydrox 30 Ml Oral.Susp) 30 ml PO Q6H PRN PRN Reason: Heartburn/Nausea Last Admin: 07/21/22 22:21 Dose: 30 ml Clonidine HCl (Clonidine Hcl 0.2 Mg Tablet) 0.2 mg PO TID PRN; Protocol PRN Reason: anxiety Last Admin: 07/24/22 20:37 Dose: 0.2 mg Gabapentin (Gabapentin 100 Mg Capsule) 200 mg PO QID PRN PRN Reason: anxiety Last Admin: 07/24/22 20:37 Dose: 200 mg Haloperidol (Haloperidol 5 Mg Tablet) 5 mg PO TID PRN PRN Reason: agitation Last Admin: 07/24/22 20:37 Dose: 5 mg Hydroxyzine HCl (Hydroxyzine Hcl 25 Mg Tablet) 25 mg PO Q6H PRN PRN Reason: Anxiety Last Admin: 07/23/22 21:27 Dose: 25 mg Ibuprofen (Ibuprofen 800 Mg Tablet) 800 mg PO Q8H PRN PRN Reason: Pain, Mild (Pain Scale 1-3) Last Admin: 07/22/22 22:28 Dose: 800 mg Loperamide HCl (Loperamide Hcl 2 Mg Capsule) 4 mg PO Q4H PRN PRN Reason: Diarrhea Last Admin: 07/24/22 17:42 Dose: 4 mg Lorazepam (Lorazepam 0.5 Mg Tablet) 0.5 mg PO BID PRN PRN Reason: Anxiety Last Admin: 07/24/22 20:37 Dose: 0.5 mg Lurasidone HCl (Lurasidone Hcl 40 Mg Tablet) 40 mg PO BEDTIME [facility] Last Admin: 07/24/22 20:37 Dose: 40 mg Magnesium Hydroxide (Milk Of Magnesia 30 Ml Oral.Susp) 30 ml PO DAILY PRN PRN Reason: Constipation Non-Formulary Medication (Sprintec 28) 1 tab PO DAILY [facility] Last Admin: 07/25/22 10:42 Dose: 1 tab Omeprazole (Omeprazole 20 Mg Capsule.Dr) 20 mg PO DAILY@0630 [facility] Last Admin: 07/25/22 10:42 Dose: 20 mg Topiramate (Topiramate 25 Mg Tablet) 25 mg PO BEDTIME [facility] Last Admin: 07/24/22 20:37 Dose: 25 mg Trazodone HCl (Trazodone Hcl 50 Mg Tablet) 150 mg PO BEDTIME PRN PRN Reason: Insomnia Last Admin: 07/24/22 20:38 Dose: 150 mg Allergies Allergies Allergy/AdvReac Type Severity Reaction Status Date / Time atomoxetine [From Strattera] AdvReac Severe stomach Verified 07/20/22 15:45 pain citalopram [From Celexa] AdvReac Severe diaphoresis Verified 07/20/22 15:45 aripiprazole [From Abilify] AdvReac Intermediate weight gain Verified 07/20/22 15:45 paroxetine [From Paxil] AdvReac increase Verified 07/20/22 15:45 in appetite lamictal AdvReac unknown Uncoded 07/20/22 15:45 Assessment & Plan Assessment & Plan (1) Chronic post-traumatic stress disorder (PTSD): Status: Acute Code(s): F43.12 - Post-traumatic stress disorder, chronic (2) Major depressive disorder, recurrent, moderate: Status: Acute Code(s): F33.1 - Major depressive disorder, recurrent, moderate Plan 26 yo female, hx of PTSD, depression, hx of SIBS. Reports SI with plan to overdose on Gabapentin. Pt reports non compliance with medications and follow up appointments. She was scheduled to begin Latuda but was non compliant with this as well. Pt reports she will be able to come to team if feeling unsafe. Currently participating in milieu and with team. Plan: Re-start regime which was verified with [facility], Dr. Blanco (PCP), and pt's pharmacy. Latuda 20 mg hs Collateral contact as needed [facility]BT [facility] in milieu Diagnostics as indicated. 07/21/22: Increase Trazodone to 150 mg hs 07/22/22: Increase Clonidine, Gabapentin prn's Add Lorazepam prn Increase Latuda to 40 mg daily Haldol 5 mg bid prn 07/23/22: No changes today. continue current regime and plan 07/24/22: Continue current regime 07/25/22: Continue current regime Informed Consent: understands Reason for contiued inpatient stay Substantial Risk for: rapid decompensation Time Spent With Patient Time: Total time managing care of this patient today _15___ minutes.
[2022-07-25] MEDS: LORazepam 0.5 MG TABLET PO (20:53)
[2022-07-25] MEDS: Lurasidone HCl 40 MG TABLET PO (20:53)
[2022-07-25] MEDS: hydrOXYzine HCL 25 MG TABLET PO (20:53)
[2022-07-25] MEDS: Gabapentin 100 MG CAPSULE 200 MG PO (20:53)
[2022-07-25] MEDS: cloNIDine HCL 0.2 MG TABLET PO (20:53)
[2022-07-25] MEDS: traZODone HCL 50 MG TABLET 150 MG PO (20:53)
[2022-07-25] MEDS: Topiramate 25 MG TABLET PO (20:53)
[2022-07-26 07:00] VITALS: BMI 45.6
[2022-07-26 08:30] VITALS: BP 124/78; PULSE 75; TEMP 36.5
[2022-07-26] MEDS: Omeprazole 20 MG CAPSULE.DR PO (08:51)
--- NOTE | 2022-07-26 11:11 | P.PNPSI_ITS ---
Subjective Subjective Date of Service: 07/26/22 Reason For Visit: SI, depression Subjective Notes: Conditional Voluntary Interim History: Pt reports she feels less depressed, less SI, no plan or intent to harm self or others. She reports feeling much better than when she came to the unit. She reports sleeping and eating well. She does note that depression and suicidality has been chronic for her. Per nursing, no behavioral concerns. Medication Compliance: Yes Review of Systems Review of Systems Yes all other systems are reviewed and are negative Constitutional: Reports no additional constitutional complaints, Denies chills, Denies fever(s) and Denies night sweats Eyes: Reports no additional eye complaints, Denies blurry vision, Denies change in vision, Denies diplopia, Denies eye discharge, Denies loss of vision and De nies eye pain Denies dizziness Cardiovascular: Reports no additional cardiovascular complaints, Denies chest pain, Denies lightheadedness, Denies Loss of Consciousness and Denies dyspnea Respiratory: Reports no additional respiratory complaints and Denies dyspnea Gastrointestinal: Reports no additional gastrointestinal complaints, Denies abdominal pain, Denies melena, Denies hematochezia, Denies change in bowel habits and Denies change in stool character Musculoskeletal: Reports no additional musculoskeletal complaints, Denies numbness and Denies tingling Reports behavioral changes, Denies dizziness, Denies loss of vision, Denies numbness and Denies tingling Psychiatric: Reports no additional psychiatric complaints, Reports anxiety, Reports behavioral changes, Reports depression, Reports difficulty concentrating, Reports hopelessness, Reports irritability, Reports anhedonia, Reports mood swings and Reports suicidal ideation Endocrine: Reports no additional endocrine complaints Hematologic/Lymphatic: Reports no additional hematologic/lymphatic complaints Allergic/Immunologic: Reports no additional allergic/immunologic complaints Mental Status Exam Mental Status Exam Patient Appearance: Fatigued Patient Orientation: Person, Place, Time and Situation Level of Consciousness: Alert Patient Behavior: Appropriate, Talkative, Cooperative and Good Eye Contact Mood Description: Depressed and Anxious Affect Description: Flat Patient Cognition Impaired: No Ability to Follow Directions: Good Speech Pattern: Spontaneous Speech Memory Description: Intact Diagnostics Vital Signs (24Hr): Vital Signs - 24 hr 07/26/22 18:00 07/27/22 08:30 Temperature 97.6 F 97.4 F Pulse Rate 92 72 Respiratory Rate 16 Blood Pressure 128/68 109/70 Pulse Oximetry 98 Oxygen Delivery Method Room Air BMI result Body Mass Index 45.6 Labs 07/19/22 13:54 07/19/22 13:54 Imaging Radiology Impressions: ITS Impressions Head CT 07/22/22 15:44 IMPRESSION: 1. There are no acute bleeds or territorial infarcts. There are no acute osseous abnormalities. 2. There is soft tissue swelling in the scalp in the midline in the supraorbital region, consistent with a contusion. 3. No intracranial masses or collections are demonstrated. Medications Medications Current Medications Acetaminophen (Acetaminophen 325 Mg Tablet) 650 mg PO Q6H PRN PRN Reason: Headache/Pain Mild Scale (1-3) Al Hydroxide/Mg Hydroxide (Magnesium Hydrox/Alum Hydrox 30 Ml Oral.Susp) 30 ml PO Q6H PRN PRN Reason: Heartburn/Nausea Last Admin: 07/21/22 22:21 Dose: 30 ml Clonidine HCl (Clonidine Hcl 0.2 Mg Tablet) 0.2 mg PO TID PRN; Protocol PRN Reason: anxiety Last Admin: 07/25/22 20:53 Dose: 0.2 mg Gabapentin (Gabapentin 100 Mg Capsule) 200 mg PO QID PRN PRN Reason: anxiety Last Admin: 07/25/22 20:53 Dose: 200 mg Haloperidol (Haloperidol 5 Mg Tablet) 5 mg PO TID PRN PRN Reason: agitation Last Admin: 07/26/22 20:22 Dose: 5 mg Hydroxyzine HCl (Hydroxyzine Hcl 25 Mg Tablet) 25 mg PO Q6H PRN PRN Reason: Anxiety Last Admin: 07/27/22 10:50 Dose: 25 mg Ibuprofen (Ibuprofen 800 Mg Tablet) 800 mg PO Q8H PRN PRN Reason: Pain, Mild (Pain Scale 1-3) Last Admin: 07/22/22 22:28 Dose: 800 mg Loperamide HCl (Loperamide Hcl 2 Mg Capsule) 4 mg PO Q4H PRN PRN Reason: Diarrhea Last Admin: 07/26/22 20:22 Dose: 4 mg Lorazepam (Lorazepam 0.5 Mg Tablet) 0.5 mg PO BID PRN PRN Reason: Anxiety Last Admin: 07/27/22 10:50 Dose: 0.5 mg Lurasidone HCl (Lurasidone Hcl 40 Mg Tablet) 40 mg PO BEDTIME [facility] Last Admin: 07/26/22 20:22 Dose: 40 mg Magnesium Hydroxide (Milk Of Magnesia 30 Ml Oral.Susp) 30 ml PO DAILY PRN PRN Reason: Constipation Non-Formulary Medication (Sprintec 28) 1 tab PO DAILY [facility] Last Admin: 07/27/22 08:56 Dose: 1 tab Omeprazole (Omeprazole 20 Mg Capsule.) 20 mg PO DAILY@0630 [facility] Last Admin: 07/27/22 08:56 Dose: 20 mg Topiramate (Topiramate 25 Mg Tablet) 25 mg PO BEDTIME [facility] Last Admin: 07/26/22 20:22 Dose: 25 mg Trazodone HCl (Trazodone Hcl 50 Mg Tablet) 150 mg PO BEDTIME PRN PRN Reason: Insomnia Last Admin: 07/26/22 20:21 Dose: 150 mg Allergies Allergies Allergy/AdvReac Type Severity Reaction Status Date / Time atomoxetine [From Strattera] AdvReac Severe stomach Verified 07/20/22 15:45 pain citalopram [From Celexa] AdvReac Severe diaphoresis Verified 07/20/22 15:45 aripiprazole [From Abilify] AdvReac Intermediate weight gain Verified 07/20/22 15:45 paroxetine [From Paxil] AdvReac increase Verified 07/20/22 15:45 in appetite lamictal AdvReac unknown Uncoded 07/20/22 15:45 Assessment & Plan Assessment & Plan (1) Chronic post-traumatic stress disorder (PTSD): Status: Acute Code(s): F43.12 - Post-traumatic stress disorder, chronic (2) Major depressive disorder, recurrent, moderate: Status: Acute Code(s): F33.1 - Major depressive disorder, recurrent, moderate Plan 26 yo female, hx of PTSD, depression, hx of SIBS. Reports SI with plan to overdose on Gabapentin. Pt reports non compliance with medications and follow up appointments. She was scheduled to begin Latuda but was non compliant with this as well. Pt reports she will be able to come to team if feeling unsafe. Currently participating in milieu and with team. Plan: Re-start regime which was verified with [facility], Dr. Blanco (PCP), and pt's pharmacy. Latuda 20 mg hs Collateral contact as needed DBT [facility] in milieu Diagnostics as indicated. 07/21/22: Increase Trazodone to 150 mg hs 07/22/22: Increase Clonidine, Gabapentin prn's Add Lorazepam prn Increase Latuda to 40 mg daily Haldol 5 mg bid prn 07/23/22: No changes today. continue current regime and plan 07/24/22: Continue current regime 07/25/22: Continue current regime 07/26/22 continue tx. dc tomorrow. Patient educated on: diagnosis Informed Consent: understands Reason for contiued inpatient stay Substantial Risk for: stable for discharge Time Spent With Patient Time: Total time managing care of this patient today ____ minutes.
[2022-07-26 18:00] VITALS: BP 128/68; PULSE 92; RESP 16; TEMP 36.4; O2SAT 98
[2022-07-26] MEDS: traZODone HCL 50 MG TABLET 150 MG PO (20:21)
[2022-07-26] MEDS: HaloperidoL 5 MG TABLET PO (20:22)
[2022-07-26] MEDS: Loperamide HCl 2 MG CAPSULE 4 MG PO (20:22)
[2022-07-26] MEDS: LORazepam 0.5 MG TABLET PO (20:22)
[2022-07-26] MEDS: Topiramate 25 MG TABLET PO (20:22)
[2022-07-26] MEDS: Lurasidone HCl 40 MG TABLET PO (20:22)
[2022-07-26] MEDS: hydrOXYzine HCL 25 MG TABLET PO (20:22)
[2022-07-27 08:30] VITALS: BP 109/70; PULSE 72; TEMP 36.3
[2022-07-27] MEDS: Omeprazole 20 MG CAPSULE.DR PO (08:56)
[2022-07-27] MEDS: hydrOXYzine HCL 25 MG TABLET PO (10:50)
[2022-07-27] MEDS: LORazepam 0.5 MG TABLET PO (10:50)
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
== END 2022-07-27 14:44 | disposition home health service (06) | DRG 751 ==
LOC: HO.ED 17:50 → HO.PM5 22:55
PROVIDERS: Nurse Practitioner Family; Registered Nurse; Admitting Provider Psychiatry & Neurology Psychiatry; Emergency Provider Student in an Organized Health Care Education/Training Program; PCP Family Medicine; Visit Provider Clinical Nurse Specialist Psychiatric/Mental Health, Adult
DX: F33.1 Major depressive disorder, recurrent, moderate (principal); R45.851 Suicidal ideations; F43.12 Post-traumatic stress disorder, chronic; Z20.822 Contact with and (suspected) exposure to COVID-19; Z91.52 Personal history of nonsuicidal self-harm; Z62.810 Personal history of physical and sexual abuse in childhood; Z88.1 Allergy status to other antibiotic agents; Z88.8 Allergy status to other drugs, medicaments and biological substances; Z79.899 Other long term (current) drug therapy
CPT/HCPCS: 36415; 70450; 80048; 80061; 80076; 80143; 80179; 80307; 81025; 82077; 82607; 82746; 83036; 83735; 84439; 84443; 85025; 87635; 93005; 99285

== ENCOUNTER 2024-04-07 17:54 | Inpatient (IN) | payer OTHER, SELFPAY ==
--- NOTE | 2024-04-07 18:03 | ED_ITS ---
HPI - Psych General Chief Complaint: Psychiatric Symptoms Stated Complaint: Crisis Time Seen by Provider: 04/07/24 18:37 Source: patient, RN notes reviewed and old records reviewed Mode of arrival: ambulatory Limitations: no limitations History of Present Illness ED Provider: Jeffry HPI Narrative: 28-year-old female with past medical history significant for major depression, PTSD presents for evaluation of suicidal ideation. Patient reports that she has been feeling suicidal on and off for about 1 month. She states that she has been noncompliant with her medications pain She does admit to being compliant with trazodone and gabapentin but ?I do not take my antipsychotic all the time or my oxcarbazepine. She reports she has not had any inciting incident or event that she can think of the triggered her worsening depression and suicidal ideation Patient states she thinks she may be worsening because ?my meds have not been adjusted in a few months. ? She states that she may overdose or cut her wrists to harm herself She has not tried to harm herself recently She does admit that she took her prescribed gabapentin and trazodone at 4:00 p.m. today, about 3 hours ago but this was not with intent to harm herself She denies any somatic complaints currently Related Data Previous Rx's ?Medication ?Instructions ?Recorded norgestimate 0.25 mg-ethinyl 1 tab PO DAILY #30 tabs 07/22/22 estradiol 35 mcg tablet (Sprintec (28)) clonidine HCl 0.2 mg tablet 0.2 mg PO TID PRN anxiety #45 tabs 07/27/22 gabapentin 100 mg capsule 200 mg (2 x 100 mg) PO TID PRN 07/27/22 anxiety #90 caps hydroxyzine HCl 25 mg tablet 25 mg PO Q6H PRN Anxiety #60 tabs 07/27/22 lorazepam 0.5 mg tablet 0.5 mg PO BID PRN Anxiety #30 tabs 07/27/22 lurasidone 40 mg tablet (Latuda) 40 mg PO BEDTIME #30 tabs 07/27/22 omeprazole 20 mg capsule,delayed 20 mg PO DAILY@629 #30 caps 07/27/22 release topiramate 25 mg tablet 25 mg PO BEDTIME #30 tabs 07/27/22 trazodone 150 mg tablet 150 mg PO BEDTIME PRN Insomnia #30 07/27/22 tabs Allergies Allergy/AdvReac Type Severity Reaction Status Date / Time atomoxetine [From Strattera] AdvReac Severe stomach Verified 04/07/24 18:13 pain citalopram [From Celexa] AdvReac Severe diaphoresis Verified 04/07/24 18:13 aripiprazole [From Abilify] AdvReac Intermediate weight gain Verified 04/07/24 18:13 paroxetine [From Paxil] AdvReac increase Verified 04/07/24 18:13 in appetite lamictal AdvReac unknown Uncoded 04/07/24 18:13 Review of Systems 2 Constitutional: Constitutional: Denies body ache(s), Denies chills and Denies fever(s) Cardiovascular: Cardiovascular: Denies chest pain and Denies dyspnea Respiratory: Respiratory: Denies dyspnea Gastrointestinal: Gastrointestinal: Denies abdominal pain and Denies vomiting PMFSH Social History Social History Household Members: Other Household Members Other:: Mother Housing: House Do you presently have visiting nurse or other home services: No Alcohol intake: never Patient Tobacco Use Status: Never used Tobacco Tobacco use type: Cigarette Cigarette Packs Per Day: 0.2 Cigarettes Per Day: 4.0 e-Cigarette/Vaping Use: Never Used Second Hand Smoke Exposure: No Substance Use Type: Marijuana Advance Directives: No Advance Directives Information Provided: No Do you have a plan to hurt others: No Plan service: No Sexual orientation: Straight/Heterosexual Physical Exam 2 Vital Signs: Vital Signs: Last Vital Signs Temp 97.6 F 04/07/24 18:07 Pulse 81 04/07/24 18:07 Resp 18 04/07/24 18:07 BP 114/56 L 04/07/24 18:07 Pulse Ox 97 04/07/24 18:07 O2 Del Method Room Air 04/07/24 18:07 BMI result Body Mass Index 48.3 Const: General: healthy appearing, comfortable, no acute distress, alert and awake Nutritional Appearance: well nourished Orientation/consciousness: p atient oriented x3 HEENT: Head: Yes normocephalic and Yes atraumatic Eyes: Eyelids: Yes eyelids normal Conjunctivae: conjunctivae normal S clerae: sclerae normal Corneas: corneas normal Pupils: Equal, round and reactive pupils present EOM: EOMs intact bilaterally Neck: Neck: Yes full ROM Resp: Effort & Inspection: normal respiratory effort, able to speak in complete sentences and not labored Cardio: Rate: regular rate Rhythm: regular rhythm GI: Inspection: No distended Palpation (GI): Soft to palpation, not firm, nontender, no guarding and not rigid Skin: General skin exam: no rashes or lesions noted and elasticity normal Neuro: General: patient oriented x3 Cranial nerves: Yes Equal, round and reactive pupils present and Yes Bilaterally intact EOM present Cognition (Neuro): normal cognition Course Course Course Narrative: This is a Rapid Medical Examination (RME) performed by Mauri Reynolds PA-C in triage. Full HPI, ROS, assessment and treatment plan per primary provider in the Main ED. 28 yo female with history of PTSD, depression, bipolar , hx cutting and head banging behaviors who presents to the ER for evaluation of worsening depression for the last couple weeks, suicidal and homicidal thoughts with plan to OD on pills. was inappropriately taking meds to try to help w/ anxiety. last took her psych meds 3 days ago, stopped because they aren't working. calm and cooperative in triage. VSS. presents with her mother who she lives with. denies ETOH or drug use besides marijuana. Plan: labs, medical clearanace and then care team evaluation Medical Decision Making Medical Decision Making MDM Narrative: 28-year-old female presents for evaluation depression with suicidal ideation. Plan for medical clearance and care team evaluation once cleared Differential Diagnosis Differential Diagnoses: The differential diagnosis associated with the presentation includes Depression Suicidal ideation Medication noncompliance PTSD Mood disorder Lab Data 04/07/24 18:22 04/07/24 18:22 Labs: Lab Results 04/07/24 04/07/24 Range/Units 18:22 18:57 Sodium 141 (135-145) mmol/L Potassium 3.6 (3.3-5.1) mmol/L Chloride 109 H (96-108) mmol/L Carbon Dioxide 25 (22-29) mmol/L Anion Gap 11 L (12-20) BUN 8 L (9-16) mg/dL Creatinine 0.65 (0.5-1.4) mg/dL Estim Creat Clear Calc 146.9 Estimated GFR > 60 Random Glucose 97 (60-115) mg/dL Calcium 8.8 (8.4-10.2) mg/dL Magnesium 1.9 (1.6-2.6) mg/dL Total Bilirubin 0.3 (0.0-1.0) mg/dL Direct Bilirubin 0.1 (0.0-0.5) mg/dL AST 24 (5-31) U/L ALT 39 H (0-31) U/L Alkaline Phosphatase 93 (39-117) U/L Total Protein 6.9 (6.5-8.0) g/dL Albumin 3.9 (3.5-5.0) g/dL Urine Test NEGATIVE (NEGATIVE) Salicylates < 5.0 L (15-30) mg/dL Acetaminophen < 3 (<30) mcg/mL Ethyl Alcohol < 10 mg/dL Discharge Plan Discharge Clinical Impression: Depression with suicidal ideation Patient Disposition: Still a Patient Prescriptions: No Action norgestimate-ethinyl estradiol [Sprintec (28)] 0.25-35 mg-mcg tablet 1 tab PO DAILY Qty: 30 0RF clonidine HCl 0.2 mg Tablet 0.2 mg PO TID PRN (Reason: anxiety) Qty: 45 0RF Protocol: Hold for SBP< HOLD for SBP < : 90 lorazepam 0.5 mg Tablet 0.5 mg PO BID PRN (Reason: Anxiety) Qty: 30 0RF hydroxyzine HCl 25 mg Tablet 25 mg PO Q6H PRN (Reason: Anxiety) Qty: 60 0RF gabapentin 100 mg Capsule 200 mg PO TID PRN (Reason: anxiety) Qty: 90 0RF Latuda 40 mg Tablet 40 mg PO BEDTIME Qty: 30 0RF topiramate 25 mg Tablet 25 mg PO BEDTIME Qty: 30 0RF trazodone 150 mg tablet 150 mg PO BEDTIME PRN (Reason: Insomnia) Qty: 30 0RF omeprazole 20 mg Capsule,Delayed Release(Dr/Ec) 20 mg PO DAILY@0630 Qty: 30 0RF Print Language: Azeri
[2024-04-07 18:07] VITALS: BP 114/56; PULSE 81; RESP 18; TEMP 36.4; O2SAT 97; BMI 48.3
[2024-04-07 18:46] LABS: Acetaminophen LAB < 3 mcg/mL (<30); Alanine Aminotransferase 39 U/L (0-31); Albumin Level 3.9 g/dL (3.5-5.0); Alkaline Phosphatase 93 U/L (39-117); Anion Gap 11 (12-20); Aspartate Amino Transferase 24 U/L (5-31); Bilirubin Direct 0.1 mg/dL (0.0-0.5); Bilirubin Total 0.3 mg/dL (0.0-1.0); Blood Urea Nitrogen 8 mg/dL (9-16); Calcium 8.8 mg/dL (8.4-10.2); Carbon Dioxide 25 mmol/L (22-29); Chloride 109 mmol/L (96-108); Creatinine Clr Calc Pharmacy 146.9; Estimated Glomerular Filt Rate > 60; Ethanol < 10 mg/dL; Glucose Random 97 mg/dL (60-115); Magnesium 1.9 mg/dL (1.6-2.6); Potassium 3.6 mmol/L (3.3-5.1); Salicylate < 5.0 mg/dL (15-30); Sodium 141 mmol/L (135-145); Total Protein 6.9 g/dL (6.5-8.0)
[2024-04-07 19:18] LABS: UPreg QC Valid YES; Urine Pregnancy NEGATIVE (NEGATIVE)
--- NOTE | 2024-04-07 19:23 | PC.NURSE ---
patient appears to remain at rest presently awaiting assessment.
[2024-04-07 19:28] LABS: Amphetamine Screen Urine Not Detected (Not Detect); Barbiturates, Urine Not Detected (Not Detect); Benzodiazepines Screen Urine Not Detected (Not Detect); Buprenorphine Scr Not Detected (Not Detect); Cannabinoid Screen Urine POSITIVE (Not Detect); Cocaine Screen Urine Not Detected (Not Detect); Fentanyl, urine Not Detected (Not Detect); Methadone Screen, Urine Not Detected (Not Detect); Opiate Screen Urine Not Detected (Not Detect); Oxycodone Screen Urine Not Detected (Not Detect); Phencyclidine Screen Urine Not Detected (Not Detect)
[2024-04-07 19:49] LABS: Appearance Urine Clear; Color Urine Yellow; Glucose Urine UA Negative (Negative); Leukocyte Esterase Urine Negative (Negative); Nitrite Urine Negative (Negative); Specific Gravity - Urine 1.025 (1.005-1.025); Urine Blood Negative (Negative); Urine Ketones Negative (Negative); Urine Protein Negative (Neg-Trace)
[2024-04-07 19:56] LABS: MANUAL DIFF FLAG NO
[2024-04-07 19:58] LABS: Basophils Absolute Auto 0.1 X10*3/uL (0.0-0.2); Basophils Percent Auto 0.5 % (0-2); Eosinophils Absolute Auto 0.4 X10*3/uL (0.0-0.4); Eosinophils Percent Auto 3.8 % (0-4); Hematocrit 36.9 % (37.0-47.0); Hemoglobin 12.2 g/dl (12.0-16.0); Imm Gran Abs Auto 0.03 X10*3/uL (0.00-0.03); Imm Gran Pct Auto 0.3 % (0.0-0.4); Lymphocytes Absolute Auto 3.3 X10*3/uL (1.2-4.9); Lymphocytes Percent Auto 36.2 % (20-40); Mean Corpuscular HGB Conc 33.1 g/dl (31.0-35.0); Mean Corpuscular Hemoglobin 27.7 pg (27.0-33.0); Mean Corpuscular Volume 83.7 fL (80.0-98.0); Mean Platelet Volume 9.1 fL (9.4-12.3); Monocytes Absolute Auto 0.7 X10*3/uL (0.1-1.2); Monocytes Percent Auto 7.4 % (2-11); Neutrophils Absolute Auto 4.7 x10*3/uL (2.0-8.3); Neutrophils Percent Auto 51.8 % (45-73); Platelet Count 287 X10*3/uL (160-400); Red Blood Count 4.41 X10*6/uL (4.20-5.50); White Blood Count 9.2 X10*3/uL (4.8-10.8)
--- NOTE | 2024-04-08 05:29 | PC.NURSE ---
Took report from off-going RN at 2300 hrs. Pt is a 28 y/o female who presented to the ED from home with mom for evaluation of increased feelings of depression, SI with a plan (overdose or cutting), and non-compliance with medications. Pt is arousable with verbal stimuli. Pt is calm and cooperative, appropriate with staff. Pt has been sleeping most of the shift, appears comfortable. Changes positions independently as desired. Independent with toileting, walks with a steady gait unassisted. Pt has been evaluated by Care team, is on a section 12, and a bed search is ongoing. Will continue to monitor for any changes.
[2024-04-08 06:35] VITALS: RESP 16
--- NOTE | 2024-04-08 07:34 | ECG_ITS ---
Test Reason : CHECH FOR PROLONGED QT Blood Pressure : / mmHG Vent. Rate : 073 BPM Atrial Rate : 073 BPM P-R Int : 148 ms QRS Dur : 080 ms QT Int : 426 ms P-R-T Axes : 031 070 037 degrees QTc Int : 469 ms Normal sinus rhythm Normal ECG When compared with ECG of 19-JUL-2022 20:16, No significant change was found Referred By: Generic ED Physician Electronically Signed By:COLLIN MALLORY
[2024-04-08 14:53] VITALS: BP 137/58; PULSE 66; RESP 18; TEMP 36.8; O2SAT 97
[2024-04-08] MEDS: LORazepam 1 MG TABLET PO (15:20)
[2024-04-08] MEDS: Gabapentin 300 MG CAPSULE PO ×2 (15:20→20:12)
[2024-04-08] MEDS: Nicotine 21 MG PATCH.TD24 TRANSDERMA (15:33)
[2024-04-08] MEDS: Omeprazole 20 MG CAPSULE.DR PO (18:22)
[2024-04-08] MEDS: traZODone HCL 100 MG TABLET 150 MG PO (20:11)
[2024-04-08 20:20] VITALS: BP 112/69; PULSE 79; RESP 16; TEMP 36.3; O2SAT 98
[2024-04-08] MEDS: diphenhydrAMINE HCL 25 MG CAPSULE 50 MG PO (23:01)
[2024-04-09] MEDS: Omeprazole 20 MG CAPSULE.DR PO (06:41)
--- NOTE | 2024-04-09 08:09 | PHA.MEDREC ---
Pharmacy Consult ? Medication Reconciliation Pharmacy has reviewed the medication reconciliation done by nursing.
[2024-04-09] MEDS: OXcarbazepine 150 MG TABLET PO (09:24)
[2024-04-09] MEDS: Nicotine 21 MG PATCH.TD24 TRANSDERMA (09:24)
[2024-04-09] MEDS: Gabapentin 300 MG CAPSULE PO ×2 (09:24→21:57)
[2024-04-09] MEDS: Cariprazine HCl 3 MG CAPSULE PO (09:24)
--- NOTE | 2024-04-09 12:58 | PC.NURSE ---
report given to NONA Goyal on M5 at this time.
[2024-04-09] MEDS: LORazepam 1 MG TABLET PO (13:49)
--- NOTE | 2024-04-09 18:42 | PC.NURSE ---
Margarita was admitted from the POD after self presenting with worsening SI and depression in the context of poor medication adherence x 2 months. Margarita reports she has not been taking her psychiatric medication and has been taking only her gabapentin and lorazepam. She feels she is anxious a lot of the time and that she has been on the lorazepam for years she is requesting an increase in the dose and has discussed this with the provider. Prazosin added for HS. Margarita verbalized she has been struggling with sleep and questions whether she has sleep apnea (has not been tested). She is currently without a psych provider and thinks she would benefit from a therapist. Margarita denies self harm and verbalized it has been years since she has done anything to harm herself but that she used to cut and bang her head. Skin assessment was WNL with no dorantes or open skin. Margarita reports she is currently living with her boyfriend and her mom and that they are supportive. Margarita smokes one pack per day and a consult was entered. She denies any drug use except marijuana which she currently uses daily. She denies alcohol use. Once on unit Margarita has been in the milieu and showered. Requested and received her once daily 1mg PRN lorazepam with good effect. Appetite is good and she ate 100% of lunch and dinner. Currently socializing with peers.
[2024-04-09 19:55] VITALS: BP 97/49; PULSE 80; RESP 14; TEMP 37.1; O2SAT 98
[2024-04-09] MEDS: Loperamide HCl 2 MG CAPSULE 4 MG PO (21:18)
[2024-04-09] MEDS: Prazosin HCL 1 MG CAPSULE PO (21:56)
[2024-04-09] MEDS: traZODone HCL 100 MG TABLET 150 MG PO (21:57)
[2024-04-10 07:35] VITALS: BP 117/59; PULSE 79; RESP 14; TEMP 36.2; O2SAT 96
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
[2024-04-10 09:00] LABS: Cholesterol 188 mg/dL (<200); HDL Cholesterol 40 mg/dL (>40); LDL Cholesterol Calculated 131 mg/dL (<100); Triglycerides 89 mg/dL (<150)
[2024-04-10] MEDS: Gabapentin 300 MG CAPSULE PO ×3 (09:06→20:37)
[2024-04-10] MEDS: OXcarbazepine 150 MG TABLET PO (09:06)
[2024-04-10] MEDS: Cariprazine HCl 1.5 MG CAPSULE 4.5 MG PO (09:06)
[2024-04-10] MEDS: Omeprazole 20 MG CAPSULE.DR PO (09:06)
[2024-04-10 09:16] LABS: Thyroid Stimulating Hormone 2.84 uIU/mL (0.32-4.0)
[2024-04-10 09:30] LABS: Folate 11.4 ng/mL (> or = 4.0); Vitamin B12 344 pg/mL (200-900)
[2024-04-10 10:59] LABS: Estimated Average Glucose 105 mg/dL; Hemoglobin A1C 170.2181 umol/L; Hemoglobin A1c % 5.3 % (<6.0)
[2024-04-10] MEDS: Nicotine 21 MG PATCH.TD24 TRANSDERMA (12:06)
[2024-04-10] MEDS: LORazepam 1 MG TABLET PO (18:37)
[2024-04-10 19:59] VITALS: BP 109/68; PULSE 75; RESP 16; TEMP 36.4; O2SAT 100
[2024-04-10] MEDS: Prazosin HCL 1 MG CAPSULE PO (20:38)
[2024-04-10] MEDS: traZODone HCL 100 MG TABLET 150 MG PO (20:38)
[2024-04-10] MEDS: traZODone HCL 50 MG TABLET PO (21:54)
[2024-04-11] MEDS: Omeprazole 20 MG CAPSULE.DR PO (06:45)
[2024-04-11 08:00] VITALS: BP 111/68; PULSE 76; RESP 18; TEMP 36.8; O2SAT 96
[2024-04-11] MEDS: Cariprazine HCl 1.5 MG CAPSULE 4.5 MG PO (08:22)
[2024-04-11] MEDS: Gabapentin 300 MG CAPSULE PO ×3 (08:23→20:33)
--- NOTE | 2024-04-11 08:48 | HO.PSYCHPN ---
Subjective Subjective Date of Service: 04/11/24 Reason For Visit: SI Subjective Notes: Conditional Voluntary Interim History: Patient was seen and discussed in rounds today. Records and plans were reviewed. She has been stable and feels that things have improved for her. Eating and sleeping adequately. No SI. No depression or anxiety reported. No side effects. No changes were made today Review of Systems Review of Systems Yes all other systems are reviewed and are negative Mental Status Exam Mental Status Exam Narrative: In today's visit she is alert, oriented and pleasant. Normal speech. Good eye contact. Affect is appropriate and varied. No signs of psychosis. Cognitively intact. No SI/HI. No AVH. Judgment is intact Diagnostics Vital Signs (24Hr): Vital Signs - 24 hr 04/10/24 19:59 04/11/24 08:00 Temperature 97.5 F 98.2 F Pulse Rate 75 76 Respiratory Rate 16 18 Blood Pressure 109/68 111/68 Pulse Oximetry 100 96 Oxygen Delivery Method Room Air Room Air BMI result Body Mass Index 48.3 Labs 04/07/24 19:52 04/07/24 18:22 Labs: Laboratory Results - last 48 hr 04/10/24 08:24 Estimat Average Glucose 105 Hemoglobin A1c % 5.3 Triglycerides 89 Cholesterol 188 LDL Cholesterol, Calc 131 H HDL Cholesterol 40 L Vitamin B12 344 Folate 11.4 TSH 2.84 Free T4 0.90 Medications Medications Current Medications Acetaminophen (Acetaminophen 325 Mg Tablet) 650 mg PO Q6H PRN PRN Reason: Headache/Pain Mild Scale (1-3) Al Hydroxide/Mg Hydroxide (Magnesium Hydrox/Alum Hydrox 30 Ml Oral.Susp) 30 ml PO Q6H PRN PRN Reason: Heartburn/Nausea Cariprazine (Cariprazine Hcl 1.5 Mg Capsule) 4.5 mg PO DAILY [facility] Last Admin: 04/11/24 08:22 Dose: 4.5 mg Gabapentin (Gabapentin 300 Mg Capsule) 300 mg PO TID [facility] Last Admin: 04/11/24 08:23 Dose: 300 mg Loperamide HCl (Loperamide Hcl 2 Mg Capsule) 4 mg PO Q4H PRN PRN Reason: Diarrhea Last Admin: 04/09/24 21:18 Dose: 4 mg Lorazepam (Lorazepam 1 Mg Tablet) 1 mg PO DAILY PRN PRN Reason: Anxiety Last Admin: 04/10/24 18:37 Dose: 1 mg Magnesium Hydroxide (Milk Of Magnesia 30 Ml Oral.Susp) 30 ml PO DAILY PRN PRN Reason: Constipation Nicotine (Nicotine 21 Mg Patch.Td24) 21 mg TRANSDERMA DAILY [facility] Last Admin: 04/11/24 08:24 Dose: Not Given Nicotine Polacrilex (Nicotine Polacrilex 2 Mg Gum) 4 mg BUCCAL Q2H PRN PRN Reason: Nicotine Cravings Omeprazole (Omeprazole 20 Mg Capsule.Dr) 20 mg PO DAILY@0630 [facility] Last Admin: 04/11/24 06:45 Dose: 20 mg Prazosin HCl (Prazosin Hcl 1 Mg Capsule) 1 mg PO BEDTIME [facility]; Protocol Last Admin: 04/10/24 20:38 Dose: 1 mg Trazodone HCl (Trazodone Hcl 100 Mg Tablet) 150 mg PO BEDTIME [facility] Last Admin: 04/10/24 20:38 Dose: 150 mg Trazodone HCl (Trazodone Hcl 50 Mg Tablet) 50 mg PO BEDTIME MRX1 PRN PRN Reason: Insomnia Last Admin: 04/10/24 21:54 Dose: 50 mg Allergies Allergies Allergy/AdvReac Type Severity Reaction Status Date / Time atomoxetine [From Strattera] AdvReac Severe stomach Verified 04/07/24 18:13 pain citalopram [From Celexa] AdvReac Severe diaphoresis Verified 04/07/24 18:13 aripiprazole [From Abilify] AdvReac Intermediate weight gain Verified 04/07/24 18:13 paroxetine [From Paxil] AdvReac increase Verified 04/07/24 18:13 in appetite lamictal AdvReac unknown Uncoded 04/07/24 18:13 Assessment & Plan Assessment & Plan (1) Depression with suicidal ideation: Status: Acute Code(s): F32.A - Depression, unspecified; R45.851 - Suicidal ideations (2) Major depressive disorder, recurrent, moderate: Status: Acute Code(s): F33.1 - Major depressive disorder, recurrent, moderate (3) Chronic post-traumatic stress disorder (PTSD): Status: Acute Code(s): F43.12 - Post-traumatic stress disorder, chronic Plan increased vraylar to 4.5 mg 04/09 for dep/mood. increased gabapentin to 300 TID on 04/10 for anxiety. D/Shane trileptal 04/10 as not indicated. unlikely bipolar disorder Dx, Sx explained by trauma Hx. sleep study ordered 04/10 per pt request. 04/11: Continue current regimen and plans Reason for continued inpatient stay Substantial Risk for: med/psych decompensation Time Spent With Patient Time: Total time managing care of this patient today ____ minutes.
[2024-04-11] MEDS: Nicotine 21 MG PATCH.TD24 TRANSDERMA (10:03)
--- NOTE | 2024-04-11 15:59 | PM.EVENT ---
Event Note Date of Service: 04/11/24 Event Note: Patient is a 28-year-old female with a PMH significant for MDD and PTSD who was admitted to [facility] psych unit for increasing depression and SI. Hospitalist consult for vaginal itching, burning, and odor. Patient reports long history of chronic BV and yeast infections. Reports she has seen her PCP or calling them every other month. Last saw them for symptoms a few weeks ago but states never heard back about testing which she assumes means it was negative. Reports symptoms started today. No noticeable discharge. Denies any recent sexual activity. States has been monogamous with same partner for the past 5 years. Denies unprotected sex. No concern for STIs. Will check BV panel with patient able to self swab. Time Spent With Patient Time: Total time managing care of this patient today ____ minutes.
[2024-04-11 20:00] VITALS: BP 125/58; PULSE 82; RESP 16; TEMP 36.6; O2SAT 96
[2024-04-11] MEDS: Prazosin HCL 1 MG CAPSULE PO (20:33)
[2024-04-11] MEDS: traZODone HCL 100 MG TABLET 150 MG PO (20:33)
[2024-04-11] MEDS: LORazepam 1 MG TABLET PO (20:34)
--- NOTE | 2024-04-11 21:53 | PC.NURSE ---
Pt declined sleep study scheduled for [facility] @2300
[2024-04-12] MEDS: Omeprazole 20 MG CAPSULE.DR PO (06:47)
[2024-04-12 07:55] VITALS: BP 113/64; PULSE 88; RESP 18; TEMP 36.2; O2SAT 97
[2024-04-12] MEDS: Cariprazine HCl 1.5 MG CAPSULE 4.5 MG PO (09:21)
[2024-04-12] MEDS: Gabapentin 300 MG CAPSULE PO ×3 (09:22→21:40)
--- NOTE | 2024-04-12 09:35 | HO.PSYCHPN ---
Subjective Subjective Date of Service: 04/12/24 Reason For Visit: SI Subjective Notes: Conditional Voluntary Interim History: Patient was seen and discussed in rounds today. Records and plans were reviewed. She has been stable and is doing better. She refused to do the sleep study last night with no given. No AVH no SI. Visible and med compliant. Eating and sleeping adequately. No complaints or side effects Review of Systems Review of Systems Yes all other systems are reviewed and are negative Mental Status Exam Mental Status Exam Narrative: In today's visit she is alert, oriented and pleasant. Normal speech. Good eye contact. Affect is appropriate and varied. No signs of psychosis. Cognitively intact. No SI/HI. No AVH. Judgment is intact Diagnostics Vital Signs (24Hr): Vital Signs - 24 hr 04/11/24 20:00 04/12/24 07:55 Temperature 98 F 97.1 F Pulse Rate 82 88 Respiratory Rate 16 18 Blood Pressure 125/58 L 113/64 Pulse Oximetry 96 97 Oxygen Delivery Method Room Air Room Air BMI result Body Mass Index 48.3 Labs 04/07/24 19:52 04/07/24 18:22 Labs: Laboratory Results - last 48 hr 04/10/24 08:24 Estimat Average Glucose 105 Hemoglobin A1c % 5.3 Medications Medications Current Medications Acetaminophen (Acetaminophen 325 Mg Tablet) 650 mg PO Q6H PRN PRN Reason: Headache/Pain Mild Scale (1-3) Al Hydroxide/Mg Hydroxide (Magnesium Hydrox/Alum Hydrox 30 Ml Oral.Susp) 30 ml PO Q6H PRN PRN Reason: Heartburn/Nausea Cariprazine (Cariprazine Hcl 1.5 Mg Capsule) 4.5 mg PO DAILY [facility] Last Admin: 04/12/24 09:21 Dose: 4.5 mg Gabapentin (Gabapentin 300 Mg Capsule) 300 mg PO TID [facility] Last Admin: 04/12/24 09:22 Dose: 300 mg Loperamide HCl (Loperamide Hcl 2 Mg Capsule) 4 mg PO Q4H PRN PRN Reason: Diarrhea Last Admin: 04/09/24 21:18 Dose: 4 mg Lorazepam (Lorazepam 1 Mg Tablet) 1 mg PO DAILY PRN PRN Reason: Anxiety Last Admin: 04/11/24 20:34 Dose: 1 mg Magnesium Hydroxide (Milk Of Magnesia 30 Ml Oral.Susp) 30 ml PO DAILY PRN PRN Reason: Constipation Nicotine (Nicotine 21 Mg Patch.Td24) 21 mg TRANSDERMA DAILY [facility] Last Admin: 04/12/24 09:25 Dose: Not Given Nicotine Polacrilex (Nicotine Polacrilex 2 Mg Gum) 4 mg BUCCAL Q2H PRN PRN Reason: Nicotine Cravings Omeprazole (Omeprazole 20 Mg Capsule.Dr) 20 mg PO DAILY@0630 [facility] Last Admin: 04/12/24 06:47 Dose: 20 mg Prazosin HCl (Prazosin Hcl 1 Mg Capsule) 1 mg PO BEDTIME [facility]; Protocol Last Admin: 04/11/24 20:33 Dose: 1 mg Trazodone HCl (Trazodone Hcl 100 Mg Tablet) 150 mg PO BEDTIME [facility] Last Admin: 04/11/24 20:33 Dose: 150 mg Trazodone HCl (Trazodone Hcl 50 Mg Tablet) 50 mg PO BEDTIME MRX1 PRN PRN Reason: Insomnia Last Admin: 04/10/24 21:54 Dose: 50 mg Allergies Allergies Allergy/AdvReac Type Severity Reaction Status Date / Time atomoxetine [From Strattera] AdvReac Severe stomach Verified 04/07/24 18:13 pain citalopram [From Celexa] AdvReac Severe diaphoresis Verified 04/07/24 18:13 aripiprazole [From Abilify] AdvReac Intermediate weight gain Verified 04/07/24 18:13 paroxetine [From Paxil] AdvReac increase Verified 04/07/24 18:13 in appetite lamictal AdvReac unknown Uncoded 04/07/24 18:13 Assessment & Plan Assessment & Plan (1) Depression with suicidal ideation: Status: Acute Code(s): F32.A - Depression, unspecified; R45.851 - Suicidal ideations (2) Major depressive disorder, recurrent, moderate: Status: Acute Code(s): F33.1 - Major depressive disorder, recurrent, moderate (3) Chronic post-traumatic stress disorder (PTSD): Status: Acute Code(s): F43.12 - Post-traumatic stress disorder, chronic Plan increased vraylar to 4.5 mg 04/09 for dep/mood. increased gabapentin to 300 TID on 04/10 for anxiety. D/Shane trileptal 04/10 as not indicated. unlikely bipolar disorder Dx, Sx explained by trauma Hx. sleep study ordered 04/10 per pt request. 04/11: Continue current regimen and plans 04/12: Continue current regimen and plans Reason for continued inpatient stay Substantial Risk for: med/psych decompensation Time Spent With Patient Time: Total time managing care of this patient today ____ minutes.
[2024-04-12 09:37] LABS: Bacterial Vaginosis PCR NEGATIVE (Negative); Candida Group PCR NOT DETECTED (Not Detect); Candida glab krusei PCR NOT DETECTED (Not Detect); Trichomonas vaginalis PCR NOT DETECTED (Not Detect)
[2024-04-12] MEDS: Nicotine 21 MG PATCH.TD24 TRANSDERMA (10:36)
[2024-04-12 19:58] VITALS: BP 130/60; PULSE 80; RESP 18; TEMP 36.7; O2SAT 98
[2024-04-12] MEDS: LORazepam 1 MG TABLET PO (21:39)
[2024-04-12] MEDS: traZODone HCL 100 MG TABLET 150 MG PO (21:39)
[2024-04-12 21:40] VITALS: BP 125/60
[2024-04-12] MEDS: Prazosin HCL 1 MG CAPSULE PO (21:40)
[2024-04-13] MEDS: LORazepam 1 MG TABLET PO ×2 (04:41→22:45)
--- NOTE | 2024-04-13 05:25 | PC.NURSE ---
Woke up at 0440, c/o increase anxiety due to nightmare and was crying at the kitchen area. PRN Ativan administered for anxiety @0441.
[2024-04-13] MEDS: Omeprazole 20 MG CAPSULE.DR PO (06:52)
[2024-04-13 07:15] VITALS: BP 87/46; PULSE 84; RESP 14; TEMP 36.8; O2SAT 96
[2024-04-13 08:29] VITALS: BP 130/87; PULSE 100
[2024-04-13] MEDS: Cariprazine HCl 1.5 MG CAPSULE 4.5 MG PO (08:29)
[2024-04-13] MEDS: Gabapentin 300 MG CAPSULE PO ×3 (08:30→22:50)
--- NOTE | 2024-04-13 13:22 | HO.PSYCHPN ---
Subjective Subjective Date of Service: 04/13/24 Reason For Visit: SI Interim History: feeling well today. nightmare last night, asking for additional dose of medication for this evening. feeling somewhat sedated and dizzy days, agrees to change vraylar dosing to HS. per staff, dep 3, no anx, taking meds. no SI/HI. tired, decr motivation. broad affect. awaiting sleep study. nightmare last NOC. Mental Status Exam Mental Status Exam Narrative: adequately groomed and dressed. cooperative. no PMA/PMR. speech nml in rate, amount, loudness, latency. flattened tone. thoughts linear and logical. affect constricted, normo-intense, non-labile. mood OK. no SI/SIBI/HI/AVH expressed. Diagnostics Vital Signs (24Hr): Vital Signs - 24 hr 04/12/24 19:58 04/12/24 21:40 04/13/24 07:15 Temperature 98.1 F 98.2 F Pulse Rate 80 84 Respiratory Rate 18 14 Blood Pressure 130/60 125/60 87/46 L Pulse Oximetry 98 96 Oxygen Delivery Method Room Air Room Air 04/13/24 08:29 Temperature Pulse Rate 100 Respiratory Rate Blood Pressure 130/87 Pulse Oximetry Oxygen Delivery Method BMI result Body Mass Index 48.3 Labs 04/07/24 19:52 04/07/24 18:22 Labs: Laboratory Results - last 48 hr 04/11/24 16:00 T. vaginalis (PCR) NOT DETECTED Bact Vaginosis (PCR) NEGATIVE C. krusei/glabrata (PCR) NOT DETECTED Carrie group (PCR) NOT DETECTED Medications Medications Current Medications Acetaminophen (Acetaminophen 325 Mg Tablet) 650 mg PO Q6H PRN PRN Reason: Headache/Pain Mild Scale (1-3) Al Hydroxide/Mg Hydroxide (Magnesium Hydrox/Alum Hydrox 30 Ml Oral.Susp) 30 ml PO Q6H PRN PRN Reason: Heartburn/Nausea Cariprazine (Cariprazine Hcl 1.5 Mg Capsule) 4.5 mg PO BEDTIME [facility] Gabapentin (Gabapentin 300 Mg Capsule) 300 mg PO TID [facility] Last Admin: 04/13/24 08:30 Dose: 300 mg Loperamide HCl (Loperamide Hcl 2 Mg Capsule) 4 mg PO Q4H PRN PRN Reason: Diarrhea Last Admin: 04/09/24 21:18 Dose: 4 mg Lorazepam (Lorazepam 1 Mg Tablet) 1 mg PO DAILY PRN PRN Reason: Anxiety Last Admin: 04/13/24 04:41 Dose: 1 mg Lorazepam (Lorazepam 1 Mg Tablet) 1 mg PO ONCE PRN PRN Reason: insomnia Magnesium Hydroxide (Milk Of Magnesia 30 Ml Oral.Susp) 30 ml PO DAILY PRN PRN Reason: Constipation Nicotine (Nicotine 21 Mg Patch.Td24) 21 mg TRANSDERMA DAILY [facility] Last Admin: 04/13/24 08:23 Dose: Not Given Nicotine Polacrilex (Nicotine Polacrilex 2 Mg Gum) 4 mg BUCCAL Q2H PRN PRN Reason: Nicotine Cravings Omeprazole (Omeprazole 20 Mg Capsule.Dr) 20 mg PO DAILY@0630 [facility] Last Admin: 04/13/24 06:52 Dose: 20 mg Prazosin HCl (Prazosin Hcl 1 Mg Capsule) 1 mg PO BEDTIME [facility]; Protocol Last Admin: 04/12/24 21:40 Dose: 1 mg Trazodone HCl (Trazodone Hcl 100 Mg Tablet) 150 mg PO BEDTIME [facility] Last Admin: 04/12/24 21:39 Dose: 150 mg Trazodone HCl (Trazodone Hcl 50 Mg Tablet) 50 mg PO BEDTIME MRX1 PRN PRN Reason: Insomnia Last Admin: 04/10/24 21:54 Dose: 50 mg Allergies Allergies Allergy/AdvReac Type Severity Reaction Status Date / Time atomoxetine [From Strattera] AdvReac Severe stomach Verified 04/07/24 18:13 pain citalopram [From Celexa] AdvReac Severe diaphoresis Verified 04/07/24 18:13 aripiprazole [From Abilify] AdvReac Intermediate weight gain Verified 04/07/24 18:13 paroxetine [From Paxil] AdvReac increase Verified 04/07/24 18:13 in appetite lamictal AdvReac unknown Uncoded 04/07/24 18:13 Assessment & Plan Assessment & Plan (1) Depression with suicidal ideation: Status: Acute Code(s): F32.A - Depression, unspecified; R45.851 - Suicidal ideations (2) Major depressive disorder, recurrent, moderate: Status: Acute Code(s): F33.1 - Major depressive disorder, recurrent, moderate (3) Chronic post-traumatic stress disorder (PTSD): Status: Acute Code(s): F43.12 - Post-traumatic stress disorder, chronic Plan 04/10: increased vraylar to 4.5 mg 04/09 for dep/mood. increased gabapentin to 300 TID on 04/10 for anxiety. D/Shane trileptal 04/10 as not indicated. unlikely bipolar disorder Dx, Sx explained by trauma Hx. sleep study ordered 04/10 per pt request. 04/11: Continue current regimen and plans 04/12: Continue current regimen and plans 04/13: sleep study remains pending. vraylar switched to HS as of tomorrow night due to c/o daytime sluggishness and occasional dizziness. continue current mgmt otherwise. considering luli or Sat discharge. Reason for continued inpatient stay Substantial Risk for: harm to self, inability to function and rapid decompensation Time Spent With Patient Time: Total time managing care of this patient today __25__ minutes.
--- NOTE | 2024-04-13 19:47 | PC.RT ---
[facility] unit called RT office, stated that pt is not feeling well tonight and would like to cancel the sleep study ordered. Will attempt tomorrow night on 04/14.
[2024-04-13 22:42] VITALS: BP 132/89; PULSE 79; RESP 16; TEMP 36.5; O2SAT 96
[2024-04-13 22:45] VITALS: BP 132/89
[2024-04-13] MEDS: Acetaminophen 325 MG TABLET 650 MG PO (22:45)
[2024-04-13] MEDS: Prazosin HCL 1 MG CAPSULE PO (22:45)
[2024-04-13] MEDS: traZODone HCL 100 MG TABLET 150 MG PO (22:46)
[2024-04-14] MEDS: Omeprazole 20 MG CAPSULE.DR PO (07:02)
[2024-04-14 07:52] VITALS: BP 119/58; PULSE 85; RESP 16; TEMP 36.4; O2SAT 96
[2024-04-14] MEDS: Gabapentin 300 MG CAPSULE PO ×3 (10:03→22:47)
--- NOTE | 2024-04-14 12:38 | P.PNPSI_ITS ---
Subjective Subjective Date of Service: 04/14/24 Reason For Visit: SI Interim History: calm, cooperative. no nightmares last night. slept well. less groggy today without vraylar in the morning. increase prazosin to 2 mg QHS. planning to DC . per staff, taking meds. no AVH. denies dep/anx. denies SI/HI. declined sleep study, says she'll do it tonight. Mental Status Exam Mental Status Exam Narrative: adequately groomed and dressed. cooperative. no PMA/PMR. speech nml in rate, amount, loudness, latency. flattened tone. thoughts linear and logical. affect constricted, normo-intense, non-labile. mood OK. no SI/SIBI/HI/AVH expressed. Diagnostics Vital Signs (24Hr): Vital Signs - 24 hr 04/13/24 22:42 04/13/24 22:45 04/14/24 07:52 Temperature 97.7 F 97.5 F Pulse Rate 79 85 Respiratory Rate 16 16 Blood Pressure 132/89 132/89 119/58 L Pulse Oximetry 96 96 Oxygen Delivery Method Room Air Room Air BMI result Body Mass Index 48.3 Labs 04/07/24 19:52 04/07/24 18:22 Medications Medications Current Medications Acetaminophen (Acetaminophen 325 Mg Tablet) 650 mg PO Q6H PRN PRN Reason: Headache/Pain Mild Scale (1-3) Last Admin: 04/13/24 22:45 Dose: 650 mg Al Hydroxide/Mg Hydroxide (Magnesium Hydrox/Alum Hydrox 30 Ml Oral.Susp) 30 ml PO Q6H PRN PRN Reason: Heartburn/Nausea Cariprazine (Cariprazine Hcl 1.5 Mg Capsule) 4.5 mg PO BEDTIME [facility] Gabapentin (Gabapentin 300 Mg Capsule) 300 mg PO TID [facility] Last Admin: 04/14/24 10:03 Dose: 300 mg Loperamide HCl (Loperamide Hcl 2 Mg Capsule) 4 mg PO Q4H PRN PRN Reason: Diarrhea Last Admin: 04/09/24 21:18 Dose: 4 mg Lorazepam (Lorazepam 1 Mg Tablet) 1 mg PO DAILY PRN PRN Reason: Anxiety Last Admin: 04/13/24 04:41 Dose: 1 mg Lorazepam (Lorazepam 1 Mg Tablet) 1 mg PO ONCE PRN PRN Reason: insomnia Last Admin: 04/13/24 22:45 Dose: 1 mg Magnesium Hydroxide (Milk Of Magnesia 30 Ml Oral.Susp) 30 ml PO DAILY PRN PRN Reason: Constipation Nicotine (Nicotine 21 Mg Patch.Td24) 21 mg TRANSDERMA DAILY [facility] Last Admin: 04/13/24 08:23 Dose: Not Given Nicotine Polacrilex (Nicotine Polacrilex 2 Mg Gum) 4 mg BUCCAL Q2H PRN PRN Reason: Nicotine Cravings Omeprazole (Omeprazole 20 Mg Capsule.Dr) 20 mg PO DAILY@0630 [facility] Last Admin: 04/14/24 07:02 Dose: 20 mg Prazosin HCl (Prazosin Hcl 1 Mg Capsule) 2 mg PO BEDTIME [facility]; Protocol Trazodone HCl (Trazodone Hcl 100 Mg Tablet) 150 mg PO BEDTIME [facility] Last Admin: 04/13/24 22:46 Dose: 150 mg Trazodone HCl (Trazodone Hcl 50 Mg Tablet) 50 mg PO BEDTIME MRX1 PRN PRN Reason: Insomnia Last Admin: 04/10/24 21:54 Dose: 50 mg Allergies Allergies Allergy/AdvReac Type Severity Reaction Status Date / Time atomoxetine [From Strattera] AdvReac Severe stomach Verified 04/07/24 18:13 pain citalopram [From Celexa] AdvReac Severe diaphoresis Verified 04/07/24 18:13 aripiprazole [From Abilify] AdvReac Intermediate weight gain Verified 04/07/24 18:13 paroxetine [From Paxil] AdvReac increase Verified 04/07/24 18:13 in appetite lamictal AdvReac unknown Uncoded 04/07/24 18:13 Assessment & Plan Assessment & Plan (1) Depression with suicidal ideation: Status: Acute Code(s): F32.A - Depression, unspecified; R45.851 - Suicidal ideations (2) Major depressive disorder, recurrent, moderate: Status: Acute Code(s): F33.1 - Major depressive disorder, recurrent, moderate (3) Chronic post-traumatic stress disorder (PTSD): Status: Acute Code(s): F43.12 - Post-traumatic stress disorder, chronic Plan 04/10: increased vraylar to 4.5 mg 04/09 for dep/mood. increased gabapentin to 300 TID on 04/10 for anxiety. D/Shane trileptal 04/10 as not indicated. unlikely bipolar disorder Dx, Sx explained by trauma Hx. sleep study ordered 04/10 per pt request. 04/11: Continue current regimen and plans 04/12: Continue current regimen and plans 04/13: sleep study remains pending. avel switched to HS as of tomorrow night due to c/o daytime sluggishness and occasional dizziness. continue current mgmt otherwise. considering luli or Sat discharge. 04/14: sleep study remains pending. declined it last night, says she'll do it tonight. less groggy today. no nightmares but disrupted sleep, agrees to increase prazosin to 2 mg QHS. requesting luli discharge. Reason for continued inpatient stay Substantial Risk for: harm to self, inability to function and rapid decompensation Time Spent With Patient Time: Total time managing care of this patient today __25__ minutes.
[2024-04-14] MEDS: Nicotine 21 MG PATCH.TD24 TRANSDERMA (12:47)
[2024-04-14] MEDS: Loperamide HCl 2 MG CAPSULE 4 MG PO (17:42)
[2024-04-14 20:00] VITALS: BP 144/76; PULSE 85; RESP 16; TEMP 36.7; O2SAT 99
[2024-04-14] MEDS: Calcium Carbonate 750 MG TAB.CHEW PO (21:00)
[2024-04-14] MEDS: traZODone HCL 100 MG TABLET 150 MG PO (22:46)
[2024-04-14] MEDS: LORazepam 1 MG TABLET PO (22:46)
[2024-04-14] MEDS: Cariprazine HCl 1.5 MG CAPSULE 4.5 MG PO (22:46)
[2024-04-14 22:47] VITALS: BP 144/76
[2024-04-14] MEDS: Prazosin HCL 1 MG CAPSULE 2 MG PO (22:47)
--- NOTE | 2024-04-15 00:38 | PC.RT ---
pt placed on sleep study
[2024-04-15] MEDS: Omeprazole 20 MG CAPSULE.DR PO (06:26)
[2024-04-15 07:34] VITALS: BP 107/56; PULSE 86; TEMP 36.6; O2SAT 98
[2024-04-15] MEDS: Gabapentin 300 MG CAPSULE PO ×3 (09:30→20:12)
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
[2024-04-15] MEDS: Nicotine 21 MG PATCH.TD24 TRANSDERMA (12:48)
[2024-04-15 20:00] VITALS: BP 126/68; PULSE 85; RESP 16; TEMP 36.8; O2SAT 97
[2024-04-15] MEDS: traZODone HCL 100 MG TABLET 150 MG PO (20:10)
[2024-04-15] MEDS: Prazosin HCL 1 MG CAPSULE 2 MG PO (20:11)
[2024-04-15] MEDS: Cariprazine HCl 1.5 MG CAPSULE 4.5 MG PO (20:11)
[2024-04-15] MEDS: LORazepam 1 MG TABLET PO (20:12)
[2024-04-15] MEDS: traZODone HCL 50 MG TABLET PO (22:43)
[2024-04-16] MEDS: Omeprazole 20 MG CAPSULE.DR PO (06:47)
[2024-04-16 07:00] VITALS: BMI 47.4
[2024-04-16 07:39] VITALS: BP 113/56; PULSE 96; RESP 18; TEMP 36.5; O2SAT 97
[2024-04-16] MEDS: Gabapentin 300 MG CAPSULE PO (08:31)
[2024-04-16] MEDS: Nicotine 21 MG PATCH.TD24 TRANSDERMA (08:31)
== END 2024-04-16 10:59 | disposition home or self-care (01) | DRG 885 ==
LOC: HO.ED 19:27 → HO.PADLT16 04-09 12:59
PROVIDERS: Physician Assistant; Student in an Organized Health Care Education/Training Program; Admitting Provider Psychiatry & Neurology Psychiatry; Emergency Provider Emergency Medicine; PCP Family Medicine; Visit Provider Psychiatry & Neurology Psychiatry
DX: F33.1 Major depressive disorder, recurrent, moderate (principal); R45.851 Suicidal ideations; F43.12 Post-traumatic stress disorder, chronic; F17.210 Nicotine dependence, cigarettes, uncomplicated; Z71.6 Tobacco abuse counseling; Z79.899 Other long term (current) drug therapy
CPT/HCPCS: 0352U; 36415; 80048; 80061; 80076; 80143; 80179; 80307; 81003; 81025; 82607; 82746; 83036; 83735; 84439; 84443; 85025; 93005; 99285; S9485

== ENCOUNTER → 2024-04-09 12:54 | Outpatient (BNV) | payer OTHER, SELFPAY | PROVIDERS: Admitting Provider Psychiatry & Neurology Psychiatry; Emergency Provider Emergency Medicine; PCP Family Medicine; Visit Provider Psychiatry & Neurology Psychiatry | DX: F33.1 Major depressive disorder, recurrent, moderate (principal); R45.851 Suicidal ideations; F43.12 Post-traumatic stress disorder, chronic | CPT/HCPCS: 99231; 99232; 99239 ==